=== PATIENT | female | born 1935 | race African-American/Black ===

== ENCOUNTER 2019-02-12 13:58 | Inpatient (IN) | payer MEDICARE ==
[2019-02-12] MEDS ORDERED: DILTIAZEM HCL/D5W 125 MG/125 ML RTUINJ IV ONE (14:27)
[2019-02-12] MEDS ORDERED: DILTIAZEM HCL/D5W 125 MG/125 ML RTUINJ IV PRN (14:28)
--- NOTE | 2019-02-12 14:49 | ER Document Report ---
ED General - General Stated Complaint: FALL Time Seen by Provider: 02/12/19 14:10 Mode of Arrival: Medic Information source: Relative, Emergency Med Personnel, [facility] Records Notes: 83-year-old female with hypertension, atrial fibrillation presents via EMS after family members did not hear from the patient for over 24 hours and she did not open her door. Patient was found on her bedroom floor lying under the bed. Las t known well was approximately 24 hours ago. Upon EMS arrival they report patient's heart rate 170-190. She did receive Cardizem prior to arrival. Daughter the patient reports that she is normal alert and oriented x3 although not very verbal. Patient denies any physical complaints when asked she just shakes her head yes and no. Daughter believes that patient has drooping of her face on the left. Patient has not been on her medications for a few weeks but started again a few days ago. She is not on any blood thinning medication. - HPI Onset: Other Quality of pain: No pain Severity: None Pain Level: Denies Associated symptoms: Weakness. denies: Chest pain, Fever, Nausea, Vomiting, Shortness of breath Exacerbated by: Denies Relieved by: Denies Similar symptoms previously: No Recently seen / treated by doctor: No - Related Data Allergies/Adverse Reactions: No Known Allergies Allergy (Verified 02/04/13 14:12) Past Medical History - General Information source: Relative, [facility] Records Cannot obtain history due to: Altered mental status - Social History Smoking Status: Never Smoker Frequency of alcohol use: None Drug Abuse: None Lives with: Alone Family History: Reviewed & Not Pertinent Patient has suicidal ideation: No Patient has homicidal ideation: No - Past Medical History Cardiac Medical History: Reports: Hx Hypertension Musculoskeletal Medical History: Reports Hx Arthritis Past Surgical History: Reports: Hx Section - x3 - Immunizations Immunizations up to date: Yes Hx Diphtheria, Pertussis, Tetanus Vaccination: Yes Hx Pneumococcal Vaccination: 11/06/07 Review of Systems - Review of Systems -: Yes ROS unobtainable due to patient's medical condition Physical Exam - Vital signs Vitals: Temp 98.7 F 02/12/19 14:10 - Notes Notes: PHYSICAL EXAMINATION: GENERAL: Well-appearing, well-nourished and in no acute distress. HEAD: Atraumatic, normocephalic. EYES: Pupils equal round and reactive to light, extraocular movements intact, conjunctiva are normal. ENT: Nares patent, oropharynx clear without exudates. Moist mucous membranes. NECK: Normal range of motion, supple without lymphadenopathy LUNGS: Breath sounds clear to auscultation bilaterally and equal. No wheezes rales or rhonchi. HEART: Regular rate and rhythm without murmurs ABDOMEN: Soft, nontender, nondistended abdomen. No guarding, no rebound. No masses appreciated. Female : deferred Musculoskeletal: Normal range of motion, no pitting or edema. No cyanosis. NEUROLOGICAL: Slurred speech, left-sided facial droop, left lower extremity bed availability drift. NIH 7 PSYCH: Normal mood, normal affect. SKIN: Posterior thigh welts, blistering Course - Re-evaluation Re-evalutation: Chest X-Ray 02/12/19 14:28 IMPRESSION: Borderline cardiomegaly without pulmonary edema. Head CT 02/12/19 14:28 IMPRESSION: There appears to be acute infarction involving a branch or branches of the right middle cerebral artery. EVIDENCE OF ACUTE STROKE: Yes RIGHT MCA. Cervical Spine CT 02/12/19 14:30 IMPRESSION: Degenerative disc disease, spondylosis, and facet arthropathy. No acute findings. Laboratory 02/12/19 02/12/19 02/12/19 14:45 14:45 14:45 WBC 13.6 H RBC 5.60 H Hgb 15.2 Hct 46.9 MCV 84 MCH 27.1 MCHC 32.4 RDW 14.6 H Plt Count 286 Total Counted 100 Seg Neutrophils % Not Reportable Seg Neuts % (Manual) 90 H Lymphocytes % Not Reportable Lymphocytes % (Manual) 5 L Monocytes % Not Reportable Monocytes % (Manual) 5 Eosinophils % Not Reportable Eosinophils % (Manual) 0 Basophils % Not Reportable Basophils % (Manual) 0 Absolute Neutrophils Not Reportable Abs Neuts (Manual) 12.2 H Absolute Lymphocytes Not Reportable Abs Lymphs (Manual) 0.7 Absolute Monocytes Not Reportable Abs Monocytes (Manual) 0.7 Absolute Eosinophils Not Reportable Absolute Eos (Manual) 0.0 Absolute Basophils Not Reportable Abs Basophils (Manual) 0.0 Platelet Comment ADEQUATE Poikilocytosis SLIGHT Anisocytosis SLIGHT Ovalocytes SLIGHT PT 14.4 INR 1.07 APTT 24.0 Sodium 143.4 Potassium 3.8 Chloride 102 Carbon Dioxide 23 Anion Gap 18 BUN 28 H Creatinine 0.90 Est GFR ( Amer) > 60 Est GFR (Non-Af Amer) > 60 Glucose 130 H Calcium 11.8 H Total Bilirubin 1.5 H Direct Bilirubin 0.5 H Neonat Total Bilirubin Not Reportable Neonat Direct Bilirubin Not Reportable Neonat Indirect Bili Not Reportable AST 105 H ALT 45 Alkaline Phosphatase 110 Creatine Kinase 5597 H CK-MB (CK-2) Troponin I Total Protein 7.9 Albumin 4.5 TSH Free T4 Free T3 pg/mL 02/12/19 02/12/19 14:45 14:45 WBC RBC Hgb Hct MCV MCH MCHC RDW Plt Count Total Counted Seg Neutrophils % Seg Neuts % (Manual) Lymphocytes % Lymphocytes % (Manual) Monocytes % Monocytes % (Manual) Eosinophils % Eosinophils % (Manual) Basophils % Basophils % (Manual) Absolute Neutrophils Abs Neuts (Manual) Absolute Lymphocytes Abs Lymphs (Manual) Absolute Monocytes Abs Monocytes (Manual) Absolute Eosinophils Absolute Eos (Manual) Absolute Basophils Abs Basophils (Manual) Platelet Comment Poikilocytosis Anisocytosis Ovalocytes PT INR APTT Sodium Potassium Chloride Carbon Dioxide Anion Gap BUN Creatinine Est GFR ( Amer) Est GFR (Non-Af Amer) Glucose Calcium Total Bilirubin Direct Bilirubin Neonat Total Bilirubin Neonat Direct Bilirubin Neonat Indirect Bili AST ALT Alkaline Phosphatase Creatine Kinase CK-MB (CK-2) 11.40 H Troponin I 0.054 Total Protein Albumin TSH < 0.01 L Free T4 1.86 Free T3 pg/mL 5.82 H Temp Pulse Resp BP Pulse Ox 98.7 F 149 H 28 H 146/89 H 97 02/12/19 14:10 02/12/19 15:00 02/12/19 16:31 02/12/19 16:31 02/12/19 16:31 Chest X-Ray 02/12/19 14:28 IMPRESSION: Borderline cardiomegaly without pulmonary edema. Head CT 02/12/19 14:28 IMPRESSION: There appears to be acute infarction involving a branch or branches of the right middle cerebral artery. EVIDENCE OF ACUTE STROKE: Yes RIGHT MCA. Cervical Spine CT 02/12/19 14:30 IMPRESSION: Degenerative disc disease, spondylosis, and facet arthropathy. No acute findings. 83-year-old female presents after being found down at home for unknown period of time. Daughter is at the B side and states that patient was last known well on Monday approximately 48 hours prior to arrival. Patient has no physical complaints when asked and only shakes her head yes and no to questions. On sure whether patient understands what she is being asked. 02/12/19 14:49 Patient found to be in atrial fibrillation with RVR with a heart rate of 140 despite 20 mg of Cardizem IV bolus. Cardizem drip initiated. Patient also found to have an NIH of 7 for left-sided facial droop, left-sided ataxia, weakness and significant dysarthria. 02/12/19 17:37 Patient's heart rate still in the 130-140s so digoxin was administered. 02/12/19 21:52 CT of the head was obtained and positive for a right MCA stroke. Patient did receive aspirin. Patient also found to be an rhabdomyolysis with a CK of over 5000. Patient did receive Cardizem and digoxin but remains tachycardic with a heart rate of 111. Patient was accepted to the ICU by Dr. Oneil. Findings discussed with the patient and her family members who are at the bedside. - Vital Signs Vital signs: Temp Pulse Resp BP Pulse Ox 98.7 F 100 25 H 134/68 H 96 02/12/19 14:10 02/12/19 18:00 02/12/19 19:31 02/12/19 19:31 02/12/19 19:31 - Laboratory Result Diagrams: 02/12/19 14:45 02/12/19 14:45 Laboratory results interpreted by me: 02/12/19 02/12/19 02/12/19 14:45 14:45 14:45 WBC 13.6 H RBC 5.60 H RDW 14.6 H Seg Neuts % (Manual) 90 H Lymphocytes % (Manual) 5 L Abs Neuts (Manual) 12.2 H BUN 28 H Glucose 130 H Calcium 11.8 H Total Bilirubin 1.5 H Direct Bilirubin 0.5 H AST 105 H Creatine Kinase 5597 H CK-MB (CK-2) 11.40 H TSH Free T3 pg/mL 02/12/19 14:45 WBC RBC RDW Seg Neuts % (Manual) Lymphocytes % (Manual) Abs Neuts (Manual) BUN Glucose Calcium Total Bilirubin Direct Bilirubin AST Creatine Kinase CK-MB (CK-2) TSH < 0.01 L Free T3 pg/mL 5.82 H - Diagnostic Test Radiology reviewed: Image reviewed, Reports reviewed - EKG Interpretation by Me Rate: Tachycardia Rhythm: A.Fib When compared to previous EKG there are: Changes noted Critical Care Note - Critical Care Note Total time excluding time spent on procedures (mins): 40 - Minutes of critical care time spent in direct contact evaluating and reevaluating the patient, treating symptoms, reviewing labs and studies and speaking with family and consultants excluding any procedures Discharge - Discharge Clinical Impression: Acute right MCA stroke, Atrial fibrillation with RVR Rhabdomyolysis Qualifiers: Rhabdomyolysis type: traumatic Encounter type: initial encounter Qualified Code(s): T79.6XXA - Traumatic ischemia of muscle, initial encounter HTN (hypertension) Qualifiers: Hypertension type: essential hypertension Qualified Code(s): I10 - Essential (primary) hypertension Fall at home Qualifiers: Encounter type: initial encounter Qualified Code(s): W19.XXXA - Unspecified fall, initial encounter Cervical spondylosis Qualifiers: Spinal osteoarthritis complication: without myelopathy or radiculopathy Qualified Code(s): M47.812 - Spondylosis without myelopathy or radiculopathy, cervical region Condition: Fair Disposition: ADMITTED INPATIENT Admitting Provider: Thad Unit Admitted: ICU ED NIH Stroke Scale - NIH Stroke Scale *: 1. NIH scale should be completed with appropriate accompanying assessment tools. *: 2. The NIH should reflect what the patient is capable of doing and should not be coached by the clinician. 1a. Level of Consciousness: 0=Alert;keenly responsive -: 1=Drowsy -: 2=Obtunded -: 3=Coma/unresponsive or reflex to noxious stimuli. 1a. Responses: 0 1b. Orientation Questions: a. What month is it? -: b. How old are you? -: 0=Answers both questions correctly. -: 1=Answers one question correctly or patient is intubated or has orotracheal trauma. -: 2=Answers neither question correctly. 1b. Responses: 0 1c. Response to commands: a. Open and close eyes? -: b. Certified Orthotist Practice Manager and release hand? -: Credit is given despite weakness. Demonstration of task is permitted. Substitute command if hands cannot be used. -: 0=Performs both tasks correctly -: 1=Performs one task correctly -: 2=Performs neither task correctly 1c. Responses: 0 2. Gaze: Establish eye contact and instruct patient to "Follow my finger" -: 0=Normal -: 1=Partial gaze palsy. Gaze is abnormal in one or both eyes, but where forced deviation or total gaze paresis is not present. -: 2=Forced deviation or total gaze paresis. 2. Responses: 0 3. Visual Breen: Sees fingers in all four quadrants. -: 0=No visual loss. -: 1=Partial hemianopsia. -: 2=Complete hemianopsia. -: 3=Bilateral hemianopsia (including Cortical blindness) 3. Responses: 0 4. Facial Movement: Instruct patient to: -: a. Show me your teeth -: b. Raise your eyebrows -: c. Close your eyes -: d. Smile -: 0=Normal symmetrical movement -: 1=Minor paralysis (flattened nasolabial fold, asymmetry on smiling). -: 2=Partial paralysis (total or near total paralysis of lower face). -: 3=Complete paralysis of upper and lower face 4. Responses: 1 5. Motor functions (left arm): Alternate sides and extend each arm with palms down (90 degrees if sitting or 45 degrees for supine). -: 0=No drift;limb holds for full 10 seconds. -: 1=Drift; limb holds but drifts down before full 10 seconds, but does not hit bed. -: 2=Some effort against gravity; limb cannot get to or maintain position. -: 3=No effort against gravity; limb falls. -: 4=No movement. -: UN=Amputation, joint fusion, explain in comments. 5. Responses (left arm): 1 5. Motor Functions (right arm): Alternate sides and extend each arm with palms down (90 degrees if sitting or 45 degrees for supine). -: 0=No drift;limb holds for full 10 seconds. -: 1=Drift; limb holds but drifts down before full 10 seconds, but does not hit bed. -: 2=Some effort against gravity; limb cannot get to or maintain position. -: 3=No effort against gravity; limb falls. -: 4=No movement. -: UN=Amputation, joint fusion, explain in comments. 5. Responses (right arm): 0 6. Motor Functions (left leg): With patient lying supine, alternate sides and extend each leg (30 degrees always while supine). -: 0=No drift, leg holds position for full 5 seconds -: 1=Drift; leg falls before full 5 seconds but does not hit bed. -: 2=Some effort against gravity, leg falls to bed but some effort against gravity. -: 3=No effort against gravity, leg falls to bed immediately. -: 4=No movement. -: UN=Amputation, joint fusion; explain in comments. 6. Responses (left leg): 2 6. Motor Functions (right leg): With patient lying supine, alternate sides and extend each leg (30 degrees always while supine). -: 0=No drift, leg holds position for full 5 seconds -: 1=Drift; leg falls before full 5 seconds but does not hit bed. -: 2=Some effort against gravity, leg falls to bed but some effort against gravity. -: 3=No effort against gravity, leg falls to bed immediately. -: 4=No movement. -: UN=Amputation, joint fusion; explain in comments. 6. Responses (right leg): 0 7. Limb Ataxia: With eyes open instruct patient to: -: a. "Touch your finger to your nose". -: b. "Touch your heel to your melvin" -: 0=Absent -: 1=Present in one limb. -: 2=Present in two limbs. -: UN=Amputation or joint fusion; explain in comments. 7. Responses: 1 7. If ataxia present choose as appropriate: Left arm, Left leg 8. Sensory: Test sensation using pinprick or noxious stimuli. Test as many body parts as possible. -: 0=Normal;no sensory loss -: 1=Mile to moderate sensory loss (patient feels pin prick but is less sharp on affected side). -: 2=Severe or total sensory loss. 8. Responses: 0 9. Best Language: Instruct patient to: -: a. "Describe what you see in this picture." -: b. "Name the items in this picture." -: c. "Read these sentences." -: 0=No aphasia, normal -: 1=Mild to moderate aphasia. -: 2=Severe aphasia -: 3=Mute, global aphasia, no usable speech or auditory comprehension. 9. Responses: 1 10. Articulation, Dysarthia: Instruct patient to: -: "Read these words" or "Repeat these words" -: 0=Normal -: 1=Mild to moderate; patient may slur some words but can be understood without difficulty. -: 2=Severe; patients speech so slurred as to be unintelligible in the absence of dysphasia. -: UN=Intubated or other physical barrier, explain in comments. 10. Responses: 1 11. Extinction or inattention: 0=No abnormality -: 1= Visual, tactile, auditory, spatial, or personal inattention or extinction to bilateral simulation in one or the sensory modalities. -: 2=Profound adore-inattention or adore-inattention to more than one modality; does not recognize own hand. 11. Responses: 0 Total Score: 7
[2019-02-12] MEDS ORDERED: DILTIAZEM HCL INJ 25 MG/5 ML VIAL ONE (14:58)
[2019-02-12] MEDS ORDERED: DILTIAZEM HCL INJ 25 MG/5 ML VIAL IV ONE (15:00)
[2019-02-12 15:05] LABS: HEMATOCRIT 46.9 % (36.0-47.0); HEMOGLOBIN 15.2 g/dL (12.0-15.5); MEAN CORPUSCULAR HEMOGLOBIN 27.1 pg (27.0-33.4); MEAN CORPUSCULAR HGB CONC 32.4 g/dL (32.0-36.0); MEAN CORPUSCULAR VOLUME 84 fl (80-97); PLATELET COUNT 286 10^3/uL (150-450); RED CELL DISTRIBUTION WIDTH 14.6 % (11.5-14.0); WHITE BLOOD COUNT 13.6 10^3/uL (4.0-10.5)
[2019-02-12 15:06] LABS: INTERNATIONAL RATION (INR) 1.07
[2019-02-12 15:11] LABS: PROTHROMBIN TIME 14.4 SEC (11.4-15.4)
--- NOTE | 2019-02-12 15:16 | RADIOLOGY REPORT (SQ) ---
EXAM DESCRIPTION: CHEST SINGLE VIEW COMPLETED DATE/TIME: 02/12/2019 2:55 pm REASON FOR STUDY: fall , left sided weakness facial droop COMPARISON: 05/13/2007 EXAM PARAMETERS: NUMBER OF VIEWS: One view. TECHNIQUE: Single frontal radiographic view of the chest acquired. RADIATION DOSE: NA LIMITATIONS: None. FINDINGS: LUNGS AND PLEURA: Mild subsegmental atelectasis in the left base. MEDIASTINUM AND HILAR STRUCTURES: No masses. Contour normal. HEART AND VASCULAR STRUCTURES: Heart size is borderline. No pulmonary edema. BONES: No acute findings. HARDWARE: None in the chest. OTHER: No other significant finding. IMPRESSION: Borderline cardiomegaly without pulmonary edema. TECHNICAL DOCUMENTATION: JOB ID: [id number] [employer]- All Rights Reserved Reading location - IP/workstation name: [email or web address]
[2019-02-12 15:25] LABS: ALANINE AMINOTRANSFERASE 45 U/L (9-52); ALBUMIN 4.5 g/dL (3.5-5.0); ALKALINE PHOSPHATASE 110 U/L (38-126); ANION GAP 18 (5-19); ASPARTATE AMINO TRANSFERASE 105 U/L (14-36); BILIRUBIN,DIRECT 0.5 mg/dL (0.0-0.4); BILIRUBIN,TOTAL 1.5 mg/dL (0.2-1.3); BLOOD UREA NITROGEN 28 mg/dL (7-20); CALCIUM 11.8 mg/dL (8.4-10.2); CARBON DIOXIDE 23 mmol/L (22-30); CHLORIDE 102 mmol/L (98-107); GLUCOSE 130 mg/dL (75-110); POTASSIUM 3.8 mmol/L (3.6-5.0); SODIUM 143.4 mmol/L (137-145); TOTAL PROTEIN 7.9 g/dL (6.3-8.2)
[2019-02-12 15:37] LABS: ABSOLUTE LYMPHOCYTES# (MANUAL) 0.7 10^3/uL (0.5-4.7); ABSOLUTE MONOCYTES # (MANUAL) 0.7 10^3/uL (0.1-1.4); ABSOLUTE NEUTROPHILS# (MANUAL) 12.2 10^3/uL (1.7-8.2); BASOPHILS % (MANUAL) 0 % (0-2); EOSINOPHILS % (MANUAL) 0 % (0-6); LYMPHOCYTES % (MANUAL) 5 % (13-45); MONOCYTES % (MANUAL) 5 % (3-13); SEGMENTED NEUTROPHILS % (MAN) 90 % (42-78); TOTAL CELLS COUNTED 100
[2019-02-12 15:39] LABS: ANISOCYTOSIS SLIGHT; CREATINE KINASE MB 11.4 ng/mL (<4.55); OVALOCYTES SLIGHT; PLATELET COMMENT ADEQUATE; POIKILOCYTOSIS SLIGHT
[2019-02-12] MEDS ORDERED: DIGOXIN INJ 0.5 MG/2 ML AMPULE IV ONE ×2 (15:41→16:44)
[2019-02-12 15:43] LABS: FREE T3 5.82 pg/mL (2.77-5.27); FREE T4 (FREE THYROXINE) 1.86 ng/dL (0.78-2.19)
[2019-02-12 15:45] LABS: TROPONIN I 0.054 ng/mL
[2019-02-12 15:57] LABS: THYROID STIMULATING HORMONE < 0.01 uIU/mL (0.47-4.68)
[2019-02-12 16:07] LABS: CREATINE KINASE 5597 U/L (30-135)
--- NOTE | 2019-02-12 16:27 | RADIOLOGY REPORT (SQ) ---
EXAM DESCRIPTION: CT HEAD WITHOUT COMPLETED DATE/TIME: 02/12/2019 4:08 pm REASON FOR STUDY: fall , left sided weakness facial droop COMPARISON: None. TECHNIQUE: Axial images acquired through the brain without intravenous contrast. Images reviewed wi th bone, brain and subdural windows. Additional sagittal and coronal reconstructions were generated. Images stored on PACS. All CT scanners at this facility use dose modulation, iterative reconstruction, and/or weight based d osing when appropriate to reduce radiation dose to as low as reasonably achievable (ALARA). [facility]: Dose Right [facility]: CareDose [facility]: Dose Right [facility]: Teradose 4D [facility]: [employer] RADIATION DOSE: CT Rad equipment meets quality standard of care and radiation dose reduction techniq ues were employed. CTDIvol: 53.2 mGy. DLP: 991 mGy-cm. mGy. LIMITATIONS: None. FINDINGS: VENTRICLES: Normal size and contour. CEREBRUM: No mass. No hemorrhage. No midline shift. There is white matter edema and loss of aguilar/ white differentiation in the distribution of the right middle cerebral artery. CEREBELLUM: No masses. No hemorrhage. No alteration of density. No evidence for acute infarction. EXTRAAXIAL SPACES: No fluid collections. No masses. ORBITS AND GLOBE: No intra- or extraconal masses. Normal contour of globe without masses. CALVARIUM: No fracture. PARANASAL SINUSES: No fluid or mucosal thickening. SOFT TISSUES: No mass or hematoma. OTHER: No other significant finding. IMPRESSION: There appears to be acute infarction involving a branch or branches of the right middle cerebral artery. EVIDENCE OF ACUTE STROKE: Yes RIGHT MCA. COMMENT: Quality ID # [id number]: Final reports with documentation of one or more dose reduction techniques (e.g., Automated exposure control, adjustment of the mA and/or kV according to patient size, use of iterative reconstruction technique) TECHNICAL DOCUMENTATION: JOB ID: [id number] 2008 [employer]- All Rights Reserved Reading location - IP/workstation name: [email or web address]
--- NOTE | 2019-02-12 16:37 | RADIOLOGY REPORT (SQ) ---
EXAM DESCRIPTION: CT CERVICAL SPINE WITHOUT COMPLETED DATE/TIME: 02/12/2019 4:08 pm REASON FOR STUDY: fall COMPARISON: None. TECHNIQUE: Axial images acquired through the cervical spine without intravenous contrast. Images re viewed with lung, soft tissue and bone windows. Reconstructed coronal and sagittal MPR images review ed. Images stored on PACS. All CT scanners at this facility use dose modulation, iterative reconstruction, and/or weight based d osing when appropriate to reduce radiation dose to as low as reasonably achievable (ALARA). [facility]: Dose Right [facility]: CareDose [facility]: Dose Right [facility]: Teradose 4D [facility]: [employer] RADIATION DOSE: CT Rad equipment meets quality standard of care and radiation dose reduction techniq ues were employed. CTDIvol: 18.1 mGy. DLP: 392 mGy-cm. mGy. LIMITATIONS: None. FINDINGS: ALIGNMENT: Anatomic. MINERALIZATION: Normal. VERTEBRAL BODIES: No fractures or dislocation. DISCS: Mild disc space narrowing from C3-C7. Small anterior and posterior osteophytes are present. FACETS, LATERAL MASSES, POSTERIOR ELEMENTS: Mild hypertrophic facet changes, left more than right. HARDWARE: None in the spine. VISUALIZED RIBS: No fractures. LUNG APICES AND SOFT TISSUES: No significant or acute findings. OTHER: No other significant finding. IMPRESSION: Degenerative disc disease, spondylosis, and facet arthropathy. No acute findings. TECHNICAL DOCUMENTATION: JOB ID: [id number] Quality ID # [id number]: Final reports with documentation of one or more dose reduction techniques (e.g., Au tomated exposure control, adjustment of the mA and/or kV according to patient size, use of iterative reconstruction technique) 2010 [employer]- All Rights Reserved Reading location - IP/workstation name: [email or web address]
[2019-02-12] MEDS ORDERED: ASPIRIN 300 MG SUPP, RECTAL PR ONE (16:45)
[2019-02-12] MEDS ORDERED: NORMAL SALINE 1000 ML 1,000 ML IV ONE (16:46)
[2019-02-12] MEDS ORDERED: GLUCAGON,HUMAN RECOMB 1 MG INJ SUBCUT PRN (17:47)
[2019-02-12] MEDS ORDERED: DEXTROSE 40% GEL 15 GM TUBE PO PRN ×2 (17:47)
[2019-02-12] MEDS ORDERED: DEXTROSE 50%-WATER 25 GM/50 ML DISP.SYRIN IV PRN ×2 (17:47)
[2019-02-12 21:38] LABS: CREATINE KINASE MB 10.2 ng/mL (<4.55)
[2019-02-12 21:43] LABS: TROPONIN I 0.056 ng/mL
--- NOTE | 2019-02-12 23:00 | RADIOLOGY REPORT (SQ) ---
EXAM DESCRIPTION: [facility]: US CAROTID DOPPLER BILATERAL CLINICAL HISTORY: 83 years Female; Acute stroke with lf hemiparesis TECHNIQUE: Grayscale and Doppler (color and pulse) ultrasound of bilateral carotid arteries and the vertebral arteries was performed. Stenosis assessment based on Carotid Artery Stenosis: Morton-Scale and Doppler US DiagnosisSociety of Radiologists in Ultrasound Consensus Conference; Radiology, Sep 2003, Vol. 229:340-346 COMPARISON: None. FINDINGS: Right carotid:Chronic calcific plaque at the ICA origin, with additional mixed plaque at the bifurcation. Right ICA velocities: Proximal 150/31, distal 175/19 cm/sec (Normal < 124/40) Right CCA PSV: 65 cm/sec Right ICA/CCA PSV ratio: 2.7 (Normal < 2.0) Right ECA: 85 cm/s Left carotid: Calcific plaque in the proximal ICA and mixed plaque at the bifurcation beginning in the distal CCA Left ICA velocities: Proximal 117/23, distal 167/28 cm/sec (Normal < 124/40) Left CCA PSV: Proximal 83, distal 43 cm/sec Left ICA/CCA PSV ratio: 3.9 (Normal < 2.0) Left ECA: 83 cm/s Right vertebral: No flow is identified Left vertebral: Antegrade, 51 cm/s IMPRESSION: 1. Atherosclerosis 2. Bilateral internal carotid artery 50-69% stenosis 3. Right vertebral artery flow could not be identified; it may be occluded. 4. Normal antegrade flow in the left vertebral artery.
[2019-02-12] MEDS: ENALAPRILAT DIHYDRATE INJ/PF 1.25 MG/1 ML SDV IV PRN (23:08)
[2019-02-12] MEDS: NORMAL SALINE 1000 ML 1,000 ML IV PRN (23:10)
--- NOTE | 2019-02-13 | EKG REPORT ---
SEVERITY:- ABNORMAL ECG - ATRIAL FIBRILLATION WITH RAPID V-RATE LVH WITH SECONDARY REPOLARIZATION ABNORMALITY : Confirmed by: Abbie Perez 13-Feb-2019 00:00:07
[2019-02-13 03:14] LABS: ABSOLUTE LYMPHOCYTES (AUTO) 1.3 10^3/uL (0.5-4.7); ABSOLUTE MONOCYTES (AUTO) 0.9 10^3/uL (0.1-1.4); ABSOLUTE NEUT (AUTO) 7.8 10^3/uL (1.7-8.2); BASOPHILS % (AUTO) 0.4 % (0-2); EOSINOPHILS % (AUTO) 0.3 % (0-6); HEMATOCRIT 41.9 % (36.0-47.0); HEMOGLOBIN 13.8 g/dL (12.0-15.5); LYMPHOCYTES % (AUTO) 13.1 % (13-45); MEAN CORPUSCULAR HEMOGLOBIN 27.2 pg (27.0-33.4); MEAN CORPUSCULAR VOLUME 82 fl (80-97); MONOCYTES % (AUTO) 9.3 % (3-13); PLATELET COUNT 229 10^3/uL (150-450); RED BLOOD COUNT 5.08 10^6/uL (3.72-5.28); RED CELL DISTRIBUTION WIDTH 14.6 % (11.5-14.0); SEGMENTED NEUTROPHILS % (AUTO) 76.9 % (42-78); TOTAL CELLS COUNTED % (AUTO) 100 %; WHITE BLOOD COUNT 10.2 10^3/uL (4.0-10.5)
[2019-02-13 03:24] LABS: ALANINE AMINOTRANSFERASE 40 U/L (9-52); ALBUMIN 3.2 g/dL (3.5-5.0); ALKALINE PHOSPHATASE 82 U/L (38-126); ANION GAP 6 (5-19); ASPARTATE AMINO TRANSFERASE 102 U/L (14-36); BILIRUBIN,DIRECT 0.4 mg/dL (0.0-0.4); BILIRUBIN,TOTAL 1.6 mg/dL (0.2-1.3); BLOOD UREA NITROGEN 26 mg/dL (7-20); CALCIUM 10.5 mg/dL (8.4-10.2); CARBON DIOXIDE 23 mmol/L (22-30); CHLORIDE 114 mmol/L (98-107); CHOLESTEROL 122.79 mg/dL (0-200); GLUCOSE 103 mg/dL (75-110); POTASSIUM 3.4 mmol/L (3.6-5.0); TOTAL PROTEIN 5.9 g/dL (6.3-8.2); TRIGLYCERIDES 77 mg/dL (<150)
[2019-02-13 03:35] LABS: CREATINE KINASE MB 5.64 ng/mL (<4.55); DIRECT LDL 61 mg/dL (<100); TROPONIN I 0.062 ng/mL
[2019-02-13 04:06] LABS: CREATINE KINASE 4201 U/L (30-135)
[2019-02-13] MEDS: NORMAL SALINE 1000 ML 1,000 ML IV PRN (05:00)
[2019-02-13] MEDS: DILTIAZEM HCL/D5W 125 MG/125 ML RTUINJ IV PRN ×2 (06:07→20:53)
[2019-02-13] MEDS: PANTOPRAZOLE SODIUM 40 MG TABLET.DR PO SCH ×2 (06:10→18:18)
--- NOTE | 2019-02-13 08:26 | PDOC PROGRESS REPORT ---
Subjective Progress Note for:: 02/13/19 Subjective:: Remain disoriented but follow simple commands. No reported difficulty with breathing. No fever. Remain NPO due to failed swallowing evaluation. Reason For Visit: ACUTE LEFT MCA STROKE;PERSISTENT ATRIAL Physical Exam Vital Signs: Temp Pulse Resp BP Pulse Ox 97.6 F 70 20 130/72 H 93 02/13/19 05:10 02/13/19 07:00 02/13/19 05:10 02/13/19 06:00 02/13/19 05:10 Intake & Output 02/12/19 02/13/19 02/14/19 06:59 06:59 06:59 Intake Total 1675 12 Balance 1675 12 Weight 75.7 kg General appearance: PRESENT: no acute distress Head exam: PRESENT: atraumatic, normocephalic Eye exam: PRESENT: conjunctiva pink. ABSENT: scleral icterus Ear exam: PRESENT: normal external ear exam Mouth exam: PRESENT: moist Respiratory exam: PRESENT: clear to auscultation vanessa, decreased breath sounds Cardiovascular exam: PRESENT: irregular rhythm, +S1, +S2. ABSENT: diastolic mur mur, systolic murmur Vascular exam: PRESENT: normal capillary refill. ABSENT: pallor GI/Abdominal exam: PRESENT: normal bowel sounds, soft. ABSENT: distended, guarding, mass, organolmegaly, rebound, tenderness Rectal exam: PRESENT: deferred Extremities exam: ABSENT: pedal edema Neurological exam: PRESENT: altered, awake, other - left hemiparesis with facial droop Psychiatric exam: PRESENT: appropriate affect, normal mood Skin exam: PRESENT: dry, warm, other - left buttock pressure ulcer with central area of early developing eschar, measure about 4x4 inches. No drainage or discharge. Results Laboratory Results: 02/13/19 02:50 02/13/19 02:50 02/12/19 02/12/19 02/12/19 14:45 14:45 14:45 WBC 13.6 H RBC 5.60 H Hgb 15.2 Hct 46.9 MCV 84 MCH 27.1 MCHC 32.4 RDW 14.6 H Plt Count 286 Seg Neutrophils % Not Reportable Lymphocytes % Not Reportable Monocytes % Not Reportable Eosinophils % Not Reportable Basophils % Not Reportable Absolute Neutrophils Not Reportable Absolute Lymphocytes Not Reportable Absolute Monocytes Not Reportable Absolute Eosinophils Not Reportable Absolute Basophils Not Reportable Sodium 143.4 Potassium 3.8 Chloride 102 Carbon Dioxide 23 Anion Gap 18 BUN 28 H Creatinine 0.90 Est GFR ( Amer) > 60 Est GFR (Non-Af Amer) > 60 Glucose 130 H Calcium 11.8 H Total Bilirubin 1.5 H AST 105 H ALT 45 Alkaline Phosphatase 110 Total Protein 7.9 Albumin 4.5 Triglycerides Cholesterol LDL Cholesterol Direct VLDL Cholesterol HDL Cholesterol TSH < 0.01 L Free T4 1.86 Free T3 pg/mL 5.82 H 02/13/19 02/13/19 02:50 02:50 WBC 10.2 RBC 5.08 Hgb 13.8 Hct 41.9 MCV 82 MCH 27.2 MCHC 33.0 RDW 14.6 H Plt Count 229 Seg Neutrophils % 76.9 Lymphocytes % 13.1 Monocytes % 9.3 Eosinophils % 0.3 Basophils % 0.4 Absolute Neutrophils 7.8 Absolute Lymphocytes 1.3 Absolute Monocytes 0.9 Absolute Eosinophils 0.0 Absolute Basophils 0.0 Sodium 143.0 Potassium 3.4 L Chloride 114 H Carbon Dioxide 23 Anion Gap 6 BUN 26 H Creatinine 0.77 Est GFR ( Amer) > 60 Est GFR (Non-Af Amer) > 60 Glucose 103 Calcium 10.5 H Total Bilirubin 1.6 H AST 102 H ALT 40 Alkaline Phosphatase 82 Total Protein 5.9 L Albumin 3.2 L Triglycerides 77 Cholesterol 122.79 LDL Cholesterol Direct 61 VLDL Cholesterol 15.0 HDL Cholesterol 48 TSH Free T4 Free T3 pg/mL 02/12/19 02/12/19 02/12/19 14:45 14:45 20:44 Creatine Kinase 5597 H 6007 H CK-MB (CK-2) 11.40 H Troponin I 0.054 02/12/19 02/13/19 02/13/19 20:44 02:50 02:50 Creatine Kinase 4201 H CK-MB (CK-2) 10.20 H 5.64 H Troponin I 0.056 0.062 Impressions: Carotid Doppler Study 02/12/19 00:00 IMPRESSION: 1. Atherosclerosis 2. Bilateral internal carotid artery 50-69% stenosis 3. Right vertebral artery flow could not be identified; it may be occluded. 4. Normal antegrade flow in the left vertebral artery. Head CT 02/12/19 14:28 IMPRESSION: There appears to be acute infarction involving a branch or branches of the right middle cerebral artery. EVIDENCE OF ACUTE STROKE: Yes RIGHT MCA. Cervical Spine CT 02/12/19 14:30 IMPRESSION: Degenerative disc disease, spondylosis, and facet arthropathy. No acute findings. Assessment & Plan - Diagnosis (1) Acute right MCA stroke Is this a current diagnosis for this admission?: Yes Plan: Continue supportive care with sbp aim at or above 120 but less than 140 mmHg for adequate cerebral perfusion. (2) Atrial fibrillation with RVR Is this a current diagnosis for this admission?: Yes Plan: Rate control is fair at present. Maintain on Aspirin suppository until oral route is save for administration. (3) Fall at home Qualifiers: Encounter type: initial encounter Qualified Code(s): W19.XXXA - Unspecified fall, initial encounter; Y92.009 - Unspecified place in unspecified non- institutional (private) residence as the place of occurrence of the external cause Is this a current diagnosis for this admission?: Yes (4) Rhabdomyolysis Qualifiers: Rhabdomyolysis type: traumatic Encounter type: initial encounter Qualified Code(s): T79.6XXA - Traumatic ischemia of muscle, initial encounter Is this a current diagnosis for this admission?: Yes Plan: Continue IV fluid support. (5) HTN (hypertension) Qualifiers: Hypertension type: essential hypertension Qualified Code(s): I10 - Essential (primary) hypertension Is this a current diagnosis for this admission?: Yes (6) Cervical spondylosis Qualifiers: Spinal osteoarthritis complication: without myelopathy or radiculopathy Qualified Code(s): M47.812 - Spondylosis without myelopathy or radiculopathy, cervical region Is this a current diagnosis for this admission?: Yes (7) Pressure ulcer of left buttock, stage 4 Is this a current diagnosis for this admission?: Yes Plan: Continue conservative management with surgical consultation. (8) Stenosis of both internal carotid arteries Is this a current diagnosis for this admission?: Yes Plan: Continue anti-platelet therapy at this time. Consider anti-thrombotic therapy with improve resolution of cerebral swelling to limit risk of bleeding with stroke evolution. - Time Time Spent with patient: 25-34 minutes Medications reviewed and adjusted accordingly: Yes Anticipated discharge: SNF Within: Other - Inpatient Certification Based on my medical assessment, after consideration of the patient's co morbidities, presenting symptoms, or acuity I expect that the services needed warrant INPATIENT care.: Yes I certify that my determination is in accordance with my understanding of Medicare's requirements for reasonable and necessary INPATIENT services [42 CFR 412.3e].: Yes Medical Necessity: Significant Comorbidiites Make Outpatient Treatment Too Risky, Need Close Monitoring Due to Risk of Patient Decompensation, Need For IV Fluids, Need For Continuous Telemetry Monitoring, Need for Neurological Checks, Need for Surgery, Risk of Complication if Not Cared For in Hospital, Risk of Diagnosis Which Will Require Inpatient Eval/Care/Monitoring Post Hospital Care: D/C or Transfer Summary - Plan Summary Plan Summary: Continue supportive management. D/C Cardizem infusion. Maintain on IV Digoxin 0.25mg daily for rate control due to her low normal sbp and heart rate < 10 0/min. Follow up on other requested pending evaluation. Request surgical consultation for pressure ulcer evaluation.
--- NOTE | 2019-02-13 08:43 | RADIOLOGY REPORT (SQ) ---
EXAM DESCRIPTION: CHEST SINGLE VIEW COMPLETED DATE/TIME: 02/13/2019 8:03 am REASON FOR STUDY: Acute stroke with lf hemiparesis COMPARISON: 02/12/2019 EXAM PARAMETERS: NUMBER OF VIEWS: One view. TECHNIQUE: Single frontal radiographic view of the chest acquired. RADIATION DOSE: NA LIMITATIONS: None. FINDINGS: LUNGS AND PLEURA: Linear lingular opacities, likely atelectasis. No additional consolidat ion. No pleural effusion or pneumothorax. MEDIASTINUM AND HILAR STRUCTURES: Stable. HEART AND VASCULAR STRUCTURES: Borderline enlarged heart, stable. No evidence of failure. Aortic at herosclerosis. BONES: No acute findings. HARDWARE: None in the chest. OTHER: No other significant finding. IMPRESSION: Linear lingular opacities likely atelectasis. Stable borderline enlarged cardiac silhouette without evidence of failure. TECHNICAL DOCUMENTATION: JOB ID: [id number] [employer]- All Rights Reserved Reading location - IP/workstation name: [email or web address]
[2019-02-13] MEDS ORDERED: ASPIRIN 81 MG TABLET, CHEWABLE PO SCH (10:00)
[2019-02-13 10:31] LABS: CREATINE KINASE MB 4.21 ng/mL (<4.55); TROPONIN I 0.044 ng/mL
[2019-02-13] MEDS: ASPIRIN 300 MG SUPP, RECTAL PR SCH (12:00)
[2019-02-13] MEDS: ENOXAPARIN SODIUM INJ 40 MG/0.4 ML DISP.SYRIN SUBCUT SCH (13:14)
[2019-02-13 17:23] LABS: ANION GAP 6 (5-19); BLOOD UREA NITROGEN 23 mg/dL (7-20); CALCIUM 9.8 mg/dL (8.4-10.2); CARBON DIOXIDE 24 mmol/L (22-30); CHLORIDE 113 mmol/L (98-107); GLUCOSE 82 mg/dL (75-110); POTASSIUM 3.4 mmol/L (3.6-5.0); SODIUM 142.6 mmol/L (137-145)
[2019-02-13] MEDS: DIGOXIN INJ 0.5 MG/2 ML AMPULE IV SCH (18:10)
--- NOTE | 2019-02-13 18:33 | PDOC H&P ---
History of Present Illness Admission Date/PCP: 02/12/19 16:57 Patient complains of: Fall at home History of Present Illness: CAYLA DE LA CRUZ is a 83 year old female patient known to my practice who presented to the ED via EMS due to lack of contact by daughter over preceding 24 hours and upon arrival at patient's resident she was unable to open her door. Upon forced entry, she was found on the floor in her bed room, unable to adequately communicate regarding event that led to her fall and daughter noted left facial droop. The EMS personnel found her in atrial fibrillation with rapid ventricular response in 5the range of 170-190. She had IV Cardizem admin istration on route to the ED. Her initial evaluation in the ED confirmed her persistent A.Fibrillation with need for IV Cardizem infusion therapy. She had 2 bolus doses of IV Digoxin due to less than optimal response to the IV Cardizem. Her radiographic evaluation did confirm right MCA branches region with acute infarction. Her cervical spine CT was significant for degenerative disc disease with spondylosis. Her blood chemistry revealed elevated CK level in range of acute rhabdomyolysis suggestive of fall and possibly on the floor for a long time. She was advised hospitalization for further evaluation and management. Her known morbidities include hypertension and osteoarthritis. Past Medical History Cardiac Medical History: Reports: Hypertension Musculoskeltal Medical History: Reports: Arthritis Past Surgical History Past Surgical History: Reports: Section - x3 Social History Lives with: Alone Smoking Status: Never Smoker - Advance Directive Resuscitation Status: Full Code Family History Family History: Reviewed & Not Pertinent Parental Family History Reviewed: Yes Children Family History Reviewed: Yes Sibling(s) Family History Reviewed.: Yes Medication/Allergy Home Medications: Amlodipine/Valsartan [Exforge 10-320 mg Tablet] 1 tab PO DAILY 02/12/19 Metoprolol Succinate [Toprol Xl 25 mg Tab.sr] 25 mg PO QAM 02/12/19 Allergies/Adverse Reactions: No Known Allergies Allergy (Verified 02/04/13 14:12) Review of Systems ROS unobtainable: Due to mental status - Daughter at bedside was sorce of her HPI narrative. Physical Exam Vital Signs: Temp Pulse Resp BP Pulse Ox 98.7 F 149 H 28 H 146/89 H 97 02/12/19 14:10 02/12/19 15:00 02/12/19 16:31 02/12/19 16:31 02/12/19 16:31 Intake & Output 02/11/19 02/12/19 02/13/19 06:59 06:59 06:59 Intake Total 2 Balance 2 Weight 91.4 kg General appearance: PRESENT: no acute distress Head exam: PRESENT: atraumatic, normocephalic Eye exam: PRESENT: conjunctiva pink, EOMI, PERRLA, scleral icterus Ear exam: PRESENT: normal external ear exam Mouth exam: PRESENT: moist, neck supple, tongue midline. ABSENT: laceration Neck exam: PRESENT: full ROM. ABSENT: carotid bruit, JVD, lymphadenopathy, thyromegaly Respiratory exam: PRESENT: clear to auscultation vanessa, decreased breath sounds Cardiovascular exam: PRESENT: irregular rhythm, +S1, +S2, tachycardia. ABSENT: diastolic murmur, systolic murmur Vascular exam: PRESENT: normal capillary refill. ABSENT: pallor GI/Abdominal exam: PRESENT: normal bowel sounds, soft. ABSENT: distended, guarding, mass, organolmegaly, rebound, tenderness Rectal exam: PRESENT: deferred Extremities exam: ABSENT: pedal edema Musculoskeletal exam: PRESENT: deformity - related to multiple joint involvement with arthritis. ABSENT: ambulatory Neurological exam: PRESENT: alert, awake - but minimal in verbal response Psychiatric exam: PRESENT: anxious - with tremor in her hands Skin exam: PRESENT: dry, warm Results Laboratory Results: 02/12/19 14:45 02/12/19 14:45 02/12/19 02/12/19 02/12/19 14:45 14:45 14:45 WBC 13.6 H RBC 5.60 H Hgb 15.2 Hct 46.9 MCV 84 MCH 27.1 MCHC 32.4 RDW 14.6 H Plt Count 286 Seg Neutrophils % Not Reportable Lymphocytes % Not Reportable Monocytes % Not Reportable Eosinophils % Not Reportable Basophils % Not Reportable Absolute Neutrophils Not Reportable Absolute Lymphocytes Not Reportable Absolute Monocytes Not Reportable Absolute Eosinophils Not Reportable Absolute Basophils Not Reportable Sodium 143.4 Potassium 3.8 Chloride 102 Carbon Dioxide 23 Anion Gap 18 BUN 28 H Creatinine 0.90 Est GFR ( Amer) > 60 Est GFR (Non-Af Amer) > 60 Glucose 130 H Calcium 11.8 H Total Bilirubin 1.5 H AST 105 H ALT 45 Alkaline Phosphatase 110 Total Protein 7.9 Albumin 4.5 TSH < 0.01 L Free T4 1.86 Free T3 pg/mL 5.82 H 02/12/19 02/12/19 14:45 14:45 Creatine Kinase 5597 H CK-MB (CK-2) 11.40 H Troponin I 0.054 Impressions: Chest X-Ray 02/12/19 14:28 IMPRESSION: Borderline cardiomegaly without pulmonary edema. Head CT 02/12/19 14:28 IMPRESSION: There appears to be acute infarction involving a branch or branches of the right middle cerebral artery. EVIDENCE OF ACUTE STROKE: Yes RIGHT MCA. Cervical Spine CT 02/12/19 14:30 IMPRESSION: Degenerative disc disease, spondylosis, and facet arthropathy. No acute findings. Assessment & Plan - Diagnosis (1) Acute right MCA stroke Is this a current diagnosis for this admission?: Yes Plan: See admitting attending physician orders. (2) Atrial fibrillation with RVR Is this a current diagnosis for this admission?: Yes Plan: See admitting attending physician orders. (3) Fall at home Qualifiers: Encounter type: initial encounter Qualified Code(s): W19.XXXA - Unspecified fall, initial encounter; Y92.009 - Unspecified place in unspecified non- institutional (private) residence as the place of occurrence of the external cause Is this a current diagnosis for this admission?: Yes Plan: See admitting attending physician orders. (4) Rhabdomyolysis Qualifiers: Rhabdomyolysis type: traumatic Encounter type: initial encounter Qualified Code(s): T79.6XXA - Traumatic ischemia of muscle, initial encounter Is this a current diagnosis for this admission?: Yes Plan: See admitting attending physician orders. (5) HTN (hypertension) Qualifiers: Hypertension type: essential hypertension Qualified Code(s): I10 - Essential (primary) hypertension Is this a current diagnosis for this admission?: Yes Plan: See admitting attending physician orders. (6) Cervical spondylosis Qualifiers: Spinal osteoarthritis complication: without myelopathy or radiculopathy Qualified Code(s): M47.812 - Spondylosis without myelopathy or radiculopathy, cervical region Is this a current diagnosis for this admission?: Yes Plan: See admitting attending physician orders. - Time Time Spent: Greater than 70 Minutes Medications reviewed and adjusted accordingly: Yes Anticipated discharge: SNF Within: Other - Inpatient Certification Based on my medical assessment, after consideration of the patient's comorbidities, presenting symptoms, or acuity I expect that the services needed warrant INPATIENT care.: Yes I certify that my determination is in accordance with my understanding of Medicare's requirements for reasonable and necessary INPATIENT services [42 CFR 412.3e].: Yes Medical Necessity: Significant Comorbidiites Make Outpatient Treatment Too Risky, Need Close Monitoring Due to Risk of Patient Decompensation, Need For IV Fluids, Need For Continuous Telemetry Monitoring, Risk of Complication if Not Cared For in Hospital, Risk of Diagnosis Which Will Require Inpatient Eval/Care/Monitoring Post Hospital Care: D/C or Transfer Summary - Plan Summary Plan Summary: See admitting attending physician orders. Patient will benefit from acute rehabilitation upon discharge.
[2019-02-13] MEDS: POTASSI CL 20 MEQ/50 ML RIDER 20 MEQ/50 ML RTUPB IV SCH ×2 (21:00→23:00)
[2019-02-14] MEDS: NORMAL SALINE 1000 ML 1,000 ML IV PRN ×3 (01:11→20:52)
[2019-02-14] MEDS: DILTIAZEM HCL/D5W 125 MG/125 ML RTUINJ IV PRN ×3 (04:52→22:15)
[2019-02-14] MEDS: PANTOPRAZOLE SODIUM 40 MG TABLET.DR PO SCH ×2 (05:07→18:44)
[2019-02-14 09:20] LABS: ABSOLUTE BASOPHILS # (AUTO) 0.1 10^3/uL (0.0-0.2); ABSOLUTE EOSINOPHILS # (AUTO) 0.2 10^3/uL (0.0-0.6); ABSOLUTE LYMPHOCYTES (AUTO) 1.3 10^3/uL (0.5-4.7); ABSOLUTE MONOCYTES (AUTO) 0.7 10^3/uL (0.1-1.4); ABSOLUTE NEUT (AUTO) 6.5 10^3/uL (1.7-8.2); BASOPHILS % (AUTO) 1.2 % (0-2); EOSINOPHILS % (AUTO) 2.7 % (0-6); HEMATOCRIT 43.2 % (36.0-47.0); HEMOGLOBIN 14.2 g/dL (12.0-15.5); LYMPHOCYTES % (AUTO) 14.4 % (13-45); MEAN CORPUSCULAR HEMOGLOBIN 27.2 pg (27.0-33.4); MEAN CORPUSCULAR HGB CONC 32.9 g/dL (32.0-36.0); MEAN CORPUSCULAR VOLUME 83 fl (80-97); MONOCYTES % (AUTO) 8.2 % (3-13); PLATELET COUNT 205 10^3/uL (150-450); RED BLOOD COUNT 5.23 10^6/uL (3.72-5.28); RED CELL DISTRIBUTION WIDTH 14.4 % (11.5-14.0); SEGMENTED NEUTROPHILS % (AUTO) 73.5 % (42-78); TOTAL CELLS COUNTED % (AUTO) 100 %; WHITE BLOOD COUNT 8.8 10^3/uL (4.0-10.5)
[2019-02-14 09:40] LABS: ANION GAP 6 (5-19); BLOOD UREA NITROGEN 16 mg/dL (7-20); CALCIUM 9.9 mg/dL (8.4-10.2); CARBON DIOXIDE 21 mmol/L (22-30); CHLORIDE 115 mmol/L (98-107); GLUCOSE 91 mg/dL (75-110); POTASSIUM 3.5 mmol/L (3.6-5.0); SODIUM 141.7 mmol/L (137-145)
[2019-02-14] MEDS: DIGOXIN INJ 0.5 MG/2 ML AMPULE IV SCH (10:57)
[2019-02-14] MEDS: ENOXAPARIN SODIUM INJ 40 MG/0.4 ML DISP.SYRIN SUBCUT SCH (11:00)
[2019-02-14] MEDS: ASPIRIN 300 MG SUPP, RECTAL PR SCH (16:04)
--- NOTE | 2019-02-14 18:34 | PDOC PROGRESS REPORT ---
Subjective Progress Note for:: 02/14/19 Subjective:: Patient is more lucid and appropriate in responses this morning. She denied any chest pain or difficulty with breathing. Request for food and water. No fever or chills. She remain NPO due to failed swallowing evaluation. Reason For Visit: ACUTE LEFT MCA STROKE;PERSISTENT ATRIAL Physical Exam Vital Signs: Temp Pulse Resp BP Pulse Ox 97.4 F 85 26 H 169/75 H 95 02/14/19 04:48 02/14/19 07:29 02/14/19 04:48 02/14/19 07:29 02/14/19 07:29 Intake & Output 02/13/19 02/14/19 02/15/19 06:59 06:59 06:59 Intake Total 1675 1271 Output Total 1100 Balance 1675 171 Weight 75.7 kg 97.8 kg Physical Exam: General appearance: PRESENT: no acute distress Head exam: PRESENT: atraumatic, normocephalic Eye exam: PRESENT: conjunctiva pink. ABSENT: pallor, scleral icterus Ear exam: PRESENT: normal external ear exam Mouth exam: PRESENT: moist Respiratory exam: PRESENT: clear to auscultation vanessa, decreased breath sounds Cardiovascular exam: PRESENT: irregular rhythm, +S1, +S2. ABSENT: diastolic murmur, systolic murmur GI/Abdominal exam: PRESENT: normal bowel sounds, soft. ABSENT: distended, guarding, mass, organomegaly, rebound, tenderness Rectal exam: PRESENT: deferred Extremities exam: ABSENT: pedal edema Neurological exam: PRESENT: altered, awake, other - improving left hemiparesis with facial droop Psychiatric exam: PRESENT: appropriate affect, normal mood Skin exam: PRESENT: dry, warm, other - left buttock pressure ulcer with central area of early developing eschar. Results Laboratory Results: 02/13/19 02:50 02/13/19 16:44 02/13/19 02/13/19 16:44 16:44 Sodium 142.6 Potassium 3.4 L Chloride 113 H Carbon Dioxide 24 Anion Gap 6 BUN 23 H Creatinine 0.69 Est GFR ( Amer) > 60 Est GFR (Non-Af Amer) > 60 Glucose 82 Calcium 9.8 Magnesium 2.1 02/12/19 02/12/19 02/12/19 14:45 14:45 20:44 Creatine Kinase 5597 H 6007 H CK-MB (CK-2) 11.40 H Troponin I 0.054 02/12/19 02/13/19 02/13/19 20:44 02:50 02:50 Creatine Kinase 4201 H CK-MB (CK-2) 10.20 H 5.64 H Troponin I 0.056 0.062 02/13/19 02/13/19 09:15 09:15 Creatine Kinase 3157 H CK-MB (CK-2) 4.21 Troponin I 0.044 Impressions: Carotid Doppler Study 02/12/19 00:00 IMPRESSION: 1. Atherosclerosis 2. Bilateral internal carotid artery 50-69% stenosis 3. Right vertebral artery flow could not be identified; it may be occluded. 4. Normal antegrade flow in the left vertebral artery. Head CT 02/12/19 14:28 IMPRESSION: There appears to be acute infarction involving a branch or branches of the right middle cerebral artery. EVIDENCE OF ACUTE STROKE: Yes RIGHT MCA. Cervical Spine CT 02/12/19 14:30 IMPRESSION: Degenerative disc disease, spondylosis, and facet arthropathy. No acute findings. Chest X-Ray 02/13/19 08:00 IMPRESSION: Linear lingular opacities likely atelectasis. Stable borderline enlarged cardiac silhouette without evidence of failure. Assessment & Plan - Diagnosis (1) Acute right MCA stroke Is this a current diagnosis for this admission?: Yes (2) Atrial fibrillation with RVR Is this a current diagnosis for this admission?: Yes (3) Fall at home Qualifiers: Encounter type: initial encounter Qualified Code(s): W19.XXXA - Unspecified fall, initial encounter; Y92.009 - Unspecified place in unspecified non- institutional (private) residence as the place of occurrence of the external cause Is this a current diagnosis for this admission?: Yes (4) Rhabdomyolysis Qualifiers: Rhabdomyolysis type: traumatic Encounter type: initial encounter Qualified Code(s): T79.6XXA - Traumatic ischemia of muscle, initial encounter Is this a current diagnosis for this admission?: Yes (5) HTN (hypertension) Qualifiers: Hypertension type: essential hypertension Qualified Code(s): I10 - Essent ial (primary) hypertension Is this a current diagnosis for this admission?: Yes (6) Cervical spondylosis Qualifiers: Spinal osteoarthritis complication: without myelopathy or radiculopathy Qualified Code(s): M47.812 - Spondylosis without myelopathy or radiculopathy, cervical region Is this a current diagnosis for this admission?: Yes - Time Time Spent with patient: 25-34 minutes Medications reviewed and adjusted accordingly: Yes Anticipated discharge: SNF - for short term rehabilitation Within: Other - Inpatient Certification Based on my medical assessment, after consideration of the patient's comorbidities, presenting symptoms, or acuity I expect that the services needed warrant INPATIENT care.: Yes I certify that my determination is in accordance with my understanding of Medicare's requirements for reasonable and necessary INPATIENT services [42 CFR 412.3e].: Yes Medical Necessity: Significant Comorbidiites Make Outpatient Treatment Too Risky, Need Close Monitoring Due to Risk of Patient Decompensation, Need For IV Fluids, Need For Continuous Telemetry Monitoring, Risk of Complication if Not Cared For in Hospital, Risk of Diagnosis Which Will Require Inpatient Eval/Care/Monitoring Post Hospital Care: D/C or Transfer Summary - Plan Summary Plan Summary: Continue current medication management. she was placed back on IV Cardizem due to worsening ventricular rate and elevated blood pressure. Follow up on swallowing evaluation to determine opportunity for oral feeding.
[2019-02-14 20:23] LABS: BLOOD UREA NITROGEN 15 mg/dL (7-20); GLUCOSE 111 mg/dL (75-110); POTASSIUM 3.5 mmol/L (3.6-5.0)
[2019-02-14 20:28] LABS: ANION GAP 6 (5-19); CARBON DIOXIDE 23 mmol/L (22-30); CHLORIDE 112 mmol/L (98-107); SODIUM 140.6 mmol/L (137-145)
[2019-02-14] MEDS: ENALAPRILAT DIHYDRATE INJ/PF 1.25 MG/1 ML SDV IV PRN (23:13)
[2019-02-15] MEDS: PANTOPRAZOLE SODIUM 40 MG TABLET.DR PO SCH ×2 (05:41→16:51)
[2019-02-15] MEDS: NORMAL SALINE 1000 ML 1,000 ML IV PRN ×2 (06:29→16:50)
[2019-02-15] MEDS: DILTIAZEM HCL/D5W 125 MG/125 ML RTUINJ IV PRN (10:12)
[2019-02-15] MEDS: ASPIRIN 300 MG SUPP, RECTAL PR SCH (10:14)
[2019-02-15] MEDS: ENOXAPARIN SODIUM INJ 40 MG/0.4 ML DISP.SYRIN SUBCUT SCH (10:16)
--- NOTE | 2019-02-15 14:53 | PDOC PROGRESS REPORT ---
Subjective Progress Note for:: 02/15/19 Subjective:: Patient denied any chest pain or difficulty with breathing. No fever or chills. She is tolerating oral feeding. No abdominal pain or diarrhea. Reason For Visit: ACUTE LEFT MCA STROKE;PERSISTENT ATRIAL Physical Exam Vital Signs: Temp Pulse Resp BP Pulse Ox 98.7 F 100 14 150/90 H 99 02/15/19 11:48 02/15/19 11:48 02/15/19 11:48 02/15/19 11:48 02/15/19 11:48 Intake & Output 02/14/19 02/15/19 02/16/19 06:59 06:59 06:59 Intake Total 1271 4267 195 Output Total 1100 2250 700 Balance 171 2016 - Weight 97.8 kg 99 kg Physical Exam: General appearance: PRESENT: no acute distress Head exam: PRESENT: atraumatic, normocephalic Eye exam: PRESENT: conjunctiva pink. ABSENT: pallor, scleral icterus Ear exam: PRESENT: normal external ear exam Mouth exam: PRESENT: moist Respiratory exam: PRESENT: clear to auscultation vanessa, decreased breath sounds Cardiovascular exam: PRESENT: irregular rhythm, +S1, +S2. ABSENT: diastolic murmur, systolic murmur GI/Abdominal exam: PRESENT: normal bowel sounds, soft. ABSENT: distended, guarding, mass, organomegaly, rebound, tenderness Extremities exam: ABSENT: pedal edema Neurological exam: PRESENT: altered, awake, other - improving left hemiparesis with facial droop Psychiatric exam: PRESENT: appropriate affect, normal mood Skin exam: PRESENT: dry, warm, other - left buttock pressure ulcer with central area of early developing eschar. Results Laboratory Results: 02/14/19 09:02 02/14/19 19:48 02/14/19 19:48 Sodium 140.6 Potassium 3.5 L Chloride 112 H Carbon Dioxide 23 Anion Gap 6 BUN 15 Creatinine 0.59 Est GFR ( Amer) > 60 Est GFR (Non-Af Amer) > 60 Glucose 111 H Calcium 10.0 Magnesium 2.0 02/12/19 02/12/19 02/12/19 14:45 14:45 20:44 Creatine Kinase 5597 H 6007 H CK-MB (CK-2) 11.40 H Troponin I 0.054 02/12/19 02/13/19 02/13/19 20:44 02:50 02:50 Creatine Kinase 4201 H CK-MB (CK-2) 10.20 H 5.64 H Troponin I 0.056 0.062 02/13/19 02/13/19 09:15 09:15 Creatine Kinase 3157 H CK-MB (CK-2) 4.21 Troponin I 0.044 Impressions: Carotid Doppler Study 02/12/19 00:00 IMPRESSION: 1. Atherosclerosis 2. Bilateral internal carotid artery 50-69% stenosis 3. Right vertebral artery flow could not be identified; it may be occluded. 4. Normal antegrade flow in the left vertebral artery. Head CT 02/12/19 14:28 IMPRESSION: There appears to be acute infarction involving a branch or branches of the right middle cerebral artery. EVIDENCE OF ACUTE STROKE: Yes RIGHT MCA. Cervical Spine CT 02/12/19 14:30 IMPRESSION: Degenerative disc disease, spondylosis, and facet arthropathy. No acute findings. Chest X-Ray 02/13/19 08:00 IMPRESSION: Linear lingular opacities likely atelectasis. Stable borderline enlarged cardiac silhouette without evidence of failure. Assessment & Plan - Diagnosis (1) Acute right MCA stroke Is this a current diagnosis for this admission?: Yes (2) Atrial fibrillation with RVR Is this a current diagnosis for this admission?: Yes (3) Fall at home Qualifiers: Encounter type: initial encounter Qualified Code(s): W19.XXXA - Unspecified fall, initial encounter; Y92.009 - Unspecified place in unspecified non- institutional (private) residence as the place of occurrence of the external cause Is this a current diagnosis for this admission?: Yes (4) Rhabdomyolysis Qualifiers: Rhabdomyolysis type: traumatic Encounter type: initial encounter Qualified Code(s): T79.6XXA - Traumatic ischemia of muscle, initial encounter Is this a current diagnosis for this admission?: Yes (5) HTN (hypertension) Qualifiers: Hypertension type: essential hypertension Qualified Code(s): I10 - Essential (primary) hypertension Is this a current diagnosis for this admission?: Yes (6) Cervical spondylosis Qualifiers: Spinal osteoarthritis complication: without myelopathy or radiculopathy Qualified Code(s): M47.812 - Spondylosis without myelopathy or radiculopathy, cervical region Is this a current diagnosis for this admission?: Yes - Time Time Spent with patient: 25-34 minutes Medications reviewed and adjusted accordingly: Yes Anticipated discharge: SNF Within: Other - Inpatient Certification Based on my medical assessment, after consideration of the patient's comorbidities, presenting symptoms, or acuity I expect that the services needed warrant INPATIENT care.: Yes I certify that my determination is in accordance with my understanding of Medicare's requirements for reasonable and necessary INPATIENT services [42 CFR 412.3e].: Yes Medical Necessity: Significant Comorbidiites Make Outpatient Treatment Too Risky, Need Close Monitoring Due to Risk of Patient Decompensation, Need For IV Fluids, Need For Continuous Telemetry Monitoring, Risk of Complication if Not Cared For in Hospital, Risk of Diagnosis Which Will Require Inpatient Eval/Care/Monitoring Post Hospital Care: D/C or Transfer Summary - Plan Summary Plan Summary: D/C IV Cardizem and Digoxin. Start on Cardizem 60 mg po q 6 hours. Maintain on I V Vasotec on prn basis for sbp > 160mmHg. Continue all other current medication management.
[2019-02-15] MEDS: DILTIAZEM HCL 60 MG TABLET PO SCH ×2 (16:56→23:27)
--- NOTE | 2019-02-15 19:22 | PDOC CONSULTATION ---
Consultation Consult Date: 02/15/19 Consult reason:: pressure sore right buttock History of Present Illness Admission Date/PCP: 02/12/19 16:57 Patient complains of: mental change History of Present Illness: CAYLA DE LA CRUZ is a 83 year old female who was admitted for CVA. Found on the floor of her bedroom with facial droop unable to communicate and with AFIB and RVR. Referred to us because of pressure sore on the right buttock. Had history of Rhabdomyolysis. Past Medical History Cardiac Medical History: Reports: Hypertension Musculoskeltal Medical History: Reports: Arthritis Past Surgical History Past Surgical History: Reports: Section - x3 Social History Lives with: Alone Smoking Status: Never Smoker Frequency of Alcohol Use: None Hx Recreational Drug Use: No Hx Prescription Drug Abuse: No - Advance Directive Resuscitation Status: Full Code Family History Family History: Reviewed & Not Pertinent Parental Family History Reviewed: Yes Children Family History Reviewed: No Sibling(s) Family History Reviewed.: No Medication/Allergy Home Medications: Amlodipine/Valsartan [Exforge 10-320 mg Tablet] 1 tab PO DAILY 02/12/19 Metoprolol Succinate [Toprol Xl 25 mg Tab.sr] 25 mg PO QAM 02/12/19 Allergies/Adverse Reactions: No Known Allergies Allergy (Verified 02/04/13 14:12) Review of Systems Constitutional: PRESENT: other - no fever/chills Respiratory: PRESENT: other - no chest pains/cough Neurological: PRESENT: weakness Physical Exam Vital Signs: Temp Pulse Resp BP Pulse Ox 98.7 F 163 H 14 163/105 H 99 02/15/19 11:48 02/15/19 16:00 02/15/19 11:48 02/15/19 16:00 02/15/19 11:48 Intake & Output 02/14/19 02/15/19 02/16/19 06:59 06:59 06:59 Intake Total 1271 4267 1195 Output Total 1100 3970 700 Balance 171 2017 495 Weight 97.8 kg 99 kg General appearance: PRESENT: no acute distress Eye exam: PRESENT: conjunctiva pink Mouth exam: PRESENT: moist Neck exam: PRESENT: full ROM Respiratory exam: PRESENT: clear to auscultation vanessa Cardiovascular exam: PRESENT: irregular rhythm Pulses: PRESENT: normal radial pulses Vascular exam: PRESENT: normal capillary refill GI/Abdominal exam: PRESENT: soft Rectal exam: PRESENT: deferred Musculoskeletal exam: PRESENT: other - Right buttock(Gluteal) area with an 8 mm circumferential darkly discolored skin without obvious abscess underneath with minimal tenderness. Neurological exam: PRESENT: alert, oriented to person, oriented to place, oriented to time, oriented to situation Psychiatric exam: PRESENT: appropriate affect Skin exam: PRESENT: normal color, warm Results Laboratory Results: 02/14/19 09:02 02/14/19 19:48 02/14/19 19:48 Sodium 140.6 Potassium 3.5 L Chloride 112 H Carbon Dioxide 23 Anion Gap 6 BUN 15 Creatinine 0.59 Est GFR ( Amer) > 60 Est GFR (Non-Af Amer) > 60 Glucose 111 H Calcium 10.0 Magnesium 2.0 02/12/19 02/12/19 02/12/19 14:45 14:45 20:44 Creatine Kinase 5597 H 6007 H CK-MB (CK-2) 11.40 H Troponin I 0.054 02/12/19 02/13/19 02/13/19 20:44 02:50 02:50 Creatine Kinase 4201 H CK-MB (CK-2) 10.20 H 5.64 H Troponin I 0.056 0.062 02/13/19 02/13/19 09:15 09:15 Creatine Kinase 3157 H CK-MB (CK-2) 4.21 Troponin I 0.044 Impressions: Carotid Doppler Study 02/12/19 00:00 IMPRESSION: 1. Atherosclerosis 2. Bilateral internal carotid artery 50-69% stenosis 3. Right vertebral artery flow could not be identified; it may be occluded. 4. Normal antegrade flow in the left vertebral artery. Head CT 02/12/19 14:28 IMPRESSION: There appears to be acute infarction involving a branch or branches of the right middle cerebral artery. EVIDENCE OF ACUTE STROKE: Yes RIGHT MCA. Cervical Spine CT 02/12/19 14:30 IMPRESSION: Degenerative disc disease, spondylosis, and facet arthropathy. No acute findings. Chest X-Ray 02/13/19 08:00 IMPRESSION: Linear lingular opacities likely atelectasis. Stable borderline enlarged cardiac silhouette without evidence of failure. Assessment & Plan - Diagnosis (1) Pressure ulcer of right buttock, stage 2 Is this a current diagnosis for this admission?: Yes (2) Acute right MCA stroke Is this a current diagnosis for this admission?: Yes (3) Atrial fibrillation with RVR Is this a current diagnosis for this admission?: Yes (4) Fall at home Qualifiers: Encounter type: initial encounter Qualified Code(s): W19.XXXA - Unspecified fall, initial encounter; Y92.009 - Unspecified place in unspecified non- institutional (private) residence as the place of occurrence of the external cause Is this a current diagnosis for this admission?: Yes (5) HTN (hypertension) Qualifiers: Hypertension type: essential hypertension Qualified Code(s): I10 - Essential (primary) hypertension Is this a current diagnosis for this admission?: Yes - Time Time Spent: 30 to 50 Minutes - Inpatient Certification Medical Necessity: Need Close Monitoring Due to Risk of Patient Decompensation, Risk of Complication if Not Cared For in Hospital - Plan Summary Plan Summary: Patient has a stage1-2 pressure sore at the right buttock. No apparent abscess formation noted. No urgent need to debride at this time since this sore is dry without underlying abscess. Went over with the nurse at bedside about keeping it dry with Allevyn dressing. Frequent turning to sides to avoid pressure and to make sure patient has good nutritional intake. Will re-evaluate in 2-3 days.
[2019-02-15] MEDS: ENALAPRILAT DIHYDRATE INJ/PF 1.25 MG/1 ML SDV IV PRN (20:52)
--- NOTE | 2019-02-15 21:11 | XCELERA REPORT ---
[address] [address] Transthoracic Echocardiogram Report Name: CAYLA DE LA CRUZ Age: 83 yrs Gender: Female : 1935 Patient Status: Inpatient Patient Location: [address] [place] [address] Study Date: 02/13/2019 09:51 AM Height: 66 in Weight: 201 lb BSA: 2.0 m2 Procedure: A two-dimensional transthoracic echocardiogram with color flow and Doppler was performed. The study was technically difficult with many images being suboptimal in quality. Reason For Study: Acute stroke with persistent A.Fib History: CVA. ATRIAL FIBRILLATION. Ordering Physician: ZEINAB THOMAS Performed By: Sera Orellana Interpretation Summary The left ventricle is normal in size. There is normal left ventricular wall thickness. LV EF is 65% The left ventricular ejection fraction is within normal limits. The left ventricular wall motion is normal. There is no thrombus. Cannot assess for ASD ,VSD , or PFO. The right ventricle is grossly normal size. The right atrium is mild to moderately dilated. The left atrium is moderately dilated. There is mild mitral annular calcification. There is no evidence of mitral valve prolapse. There is no vegetation seen on the mitral valve. There is no mitral valve stenosis. There is a trace amount of mitral regurgitation There is no aortic valvular vegetation. There is no aortic valve stenosis There is no LVOT obstruction. No aortic regurgitation is present. There is no tricuspid stenosis. There is a mild amount of tricuspid regurgitation There is mild pulmonary hypertension by echo RVSp is 39 to 44 mm of Hg , with RA mean of 5 to 10. There is no pulmonic valvular stenosis. There is a trace amount of pulmonic regurgitation The aortic root is not well visualized but is probably normal size. The inferior vena cava appeared normal and decreased > 50% with respiration (RAP 5-10 mmHg) Minimal pericardial effusion behind RA. MMode/2D Measurements & Calculations IVSd: 1.0 cm LVIDd: 3.5 cm FS: 27.8 % Ao root diam: 2.4 cm LVIDs: 2.5 cm EDV(Teich): 50.5 ml Ao root area: 4.6 cm2 LVPWd: 1.3 cm ESV(Teich): 22.8 ml EF(Teich): 54.9 % Doppler Measurements & Calculations Ao V2 max: LV V1 max PG: PA V2 max: PI end-d jd: 116.6 cm/sec 2.5 mmHg 89.7 cm/sec 92.8 cm/sec Ao max P.4 mmHg LV V1 max: PA max P.6 cm/sec 3.2 mmHg LV dP/dt: 936.3 mmHg/s TR max jd: 283.3 cm/sec TR max P.2 mmHg Left Ventricle The left ventricle is normal in size. There is normal left ventricular wall thickness. LV EF is 65%. The left ventricular ejection fraction is within normal limits. LV diastolic function could not be adequately assessed due to atrial fibrilation. The left ventricular wall motion is normal. There is no thrombus. Cannot assess for ASD ,VSD , or PFO. Right Ventricle The right ventricle is grossly normal size. Atria The right atrium is mild to moderately dilated. The left atrium is moderately dilated. Mitral Valve There is mild mitral annular calcification. There is no evidence of mitral valve prolapse. There is no vegetation seen on the mitral valve. There is no mitral valve stenosis. There is a trace amount of mitral regurgitation. Aortic Valve There is no aortic valvular vegetation. There is no aortic valve stenosis. There is no LVOT obstruction. No aortic regurgitation is present. Tricuspid Valve There is no tricuspid stenosis. There is a mild amount of tricuspid regurgitation. There is mild pulmonary hypertension by echo. RVSp is 39 to 44 mm of Hg , with RA mean of 5 to 10. Pulmonic Valve There is no pulmonic valvular stenosis. There is a trace amount of pulmonic regurgitation. Great Vessels The aortic root is not well visualized but is probably normal size. The inferior vena cava appeared normal and decreased > 50% with respiration (RAP 5-10 mmHg). Effusions Minimal pericardial effusion behind RA. : ZEINAB THOMAS > Jessica Loyd
[2019-02-16] MEDS: NORMAL SALINE 1000 ML 1,000 ML IV PRN ×2 (02:11→15:37)
[2019-02-16] MEDS: ENALAPRILAT DIHYDRATE INJ/PF 1.25 MG/1 ML SDV IV PRN ×2 (03:30→20:14)
[2019-02-16 04:08] LABS: ABSOLUTE BASOPHILS # (AUTO) 0.1 10^3/uL (0.0-0.2); ABSOLUTE EOSINOPHILS # (AUTO) 0.4 10^3/uL (0.0-0.6); ABSOLUTE LYMPHOCYTES (AUTO) 1.1 10^3/uL (0.5-4.7); ABSOLUTE MONOCYTES (AUTO) 0.7 10^3/uL (0.1-1.4); ABSOLUTE NEUT (AUTO) 6.5 10^3/uL (1.7-8.2); BASOPHILS % (AUTO) 0.8 % (0-2); EOSINOPHILS % (AUTO) 4.9 % (0-6); HEMATOCRIT 41.2 % (36.0-47.0); HEMOGLOBIN 13.8 g/dL (12.0-15.5); LYMPHOCYTES % (AUTO) 12.9 % (13-45); MEAN CORPUSCULAR HEMOGLOBIN 27.5 pg (27.0-33.4); MEAN CORPUSCULAR HGB CONC 33.4 g/dL (32.0-36.0); MEAN CORPUSCULAR VOLUME 83 fl (80-97); MONOCYTES % (AUTO) 7.6 % (3-13); PLATELET COUNT 249 10^3/uL (150-450); RED CELL DISTRIBUTION WIDTH 14.4 % (11.5-14.0); SEGMENTED NEUTROPHILS % (AUTO) 73.8 % (42-78); TOTAL CELLS COUNTED % (AUTO) 100 %; WHITE BLOOD COUNT 8.9 10^3/uL (4.0-10.5)
[2019-02-16 04:24] LABS: ALANINE AMINOTRANSFERASE 43 U/L (9-52); ALBUMIN 2.8 g/dL (3.5-5.0); ALKALINE PHOSPHATASE 90 U/L (38-126); ANION GAP 6 (5-19); ASPARTATE AMINO TRANSFERASE 43 U/L (14-36); BILIRUBIN,DIRECT 0.4 mg/dL (0.0-0.4); BILIRUBIN,TOTAL 1.2 mg/dL (0.2-1.3); BLOOD UREA NITROGEN 10 mg/dL (7-20); CALCIUM 9.9 mg/dL (8.4-10.2); CARBON DIOXIDE 24 mmol/L (22-30); CHLORIDE 110 mmol/L (98-107); CREATINE KINASE 387 U/L (30-135); GLUCOSE 108 mg/dL (75-110); POTASSIUM 3.2 mmol/L (3.6-5.0); SODIUM 139.9 mmol/L (137-145); TOTAL PROTEIN 5.5 g/dL (6.3-8.2)
[2019-02-16 04:33] LABS: CREATINE KINASE MB 0.54 ng/mL (<4.55)
[2019-02-16 04:35] LABS: TROPONIN I < 0.012 ng/mL
[2019-02-16] MEDS: DILTIAZEM HCL 60 MG TABLET PO SCH ×3 (05:24→17:44)
[2019-02-16] MEDS: PANTOPRAZOLE SODIUM 40 MG TABLET.DR PO SCH ×2 (05:24→17:44)
[2019-02-16] MEDS ORDERED: ASPIRIN 81 MG TABLET, ENT COATED PO SCH (10:00)
[2019-02-16] MEDS: ASPIRIN 81 MG TABLET, ENT COATED PO SCH (10:02)
--- NOTE | 2019-02-16 10:49 | PDOC PROGRESS REPORT ---
Subjective Progress Note for:: 02/16/19 Subjective:: Patient is alert awake oriented Denied any chest pain to than any shortness of the breath No abdominal pain Patient off the Cardizem drip currently p.o. Cardizem Patient have a episode of hematuria this morning but currently all clear after holding the Lovenox patient Patient have a history of the A. fib as per discussed with the Dr. Oneil currently hold the anticoagulation is due to the hematuria episode once his get better consider start on Eliquis Reason For Visit: ACUTE LEFT MCA STROKE;PERSISTENT ATRIAL Physical Exam Vital Signs: Temp Pulse Resp BP Pulse Ox 97.9 F 101 H 18 151/83 H 97 02/16/19 08:21 02/16/19 08:21 02/16/19 08:21 02/16/19 08:21 02/16/19 08:21 Intake & Output 02/15/19 02/16/19 02/17/19 06:59 06:59 06:59 Intake Total 4267 2585 783 Output Total 2250 4175 Balance 2016 783 Weight 99 kg 97.9 kg General appearance: PRESENT: no acute distress, well-developed, well-nourished Head exam: PRESENT: atraumatic, normocephalic Eye exam: PRESENT: conjunctiva pink, EOMI, PERRLA. ABSENT: scleral icterus Ear exam: PRESENT: normal external ear exam Mouth exam: PRESENT: moist, tongue midline Neck exam: PRESENT: full ROM. ABSENT: carotid bruit, JVD, lymphadenopathy, thyromegaly Respiratory exam: PRESENT: clear to auscultation vanessa Cardiovascular exam: PRESENT: RRR. ABSENT: diastolic murmur, rubs, systolic murmur Vascular exam: PRESENT: normal capillary refill GI/Abdominal exam: PRESENT: normal bowel sounds, soft. ABSENT: distended, guarding, mass, organolmegaly, rebound, tenderness Rectal exam: PRESENT: deferred Extremities exam: ABSENT: pedal edema Neurological exam: PRESENT: alert, awake, oriented to person, oriented to place, oriented to time, oriented to situation. ABSENT: motor sensory deficit Psychiatric exam: PRESENT: appropriate affect, normal mood. ABSENT: homicidal ideation, suicidal ideation Skin exam: PRESENT: dry, intact, warm. ABSENT: cyanosis, rash Results Laboratory Results: 02/16/19 03:55 02/16/19 03:55 02/16/19 02/16/19 03:55 03:55 WBC 8.9 RBC 5.00 Hgb 13.8 Hct 41.2 MCV 83 MCH 27.5 MCHC 33.4 RDW 14.4 H Plt Count 249 Seg Neutrophils % 73.8 Lymphocytes % 12.9 L Monocytes % 7.6 Eosinophils % 4.9 Basophils % 0.8 Absolute Neutrophils 6.5 Absolute Lymphocytes 1.1 Absolute Monocytes 0.7 Absolute Eosinophils 0.4 Absolute Basophils 0.1 Sodium 139.9 Potassium 3.2 L Chloride 110 H Carbon Dioxide 24 Anion Gap 6 BUN 10 Creatinine 0.62 Est GFR ( Amer) > 60 Est GFR (Non-Af Amer) > 60 Glucose 108 Calcium 9.9 Magnesium 1.8 Total Bilirubin 1.2 AST 43 H ALT 43 Alkaline Phosphatase 90 Total Protein 5.5 L Albumin 2.8 L 02/12/19 02/12/19 02/12/19 14:45 14:45 20:44 Creatine Kinase 5597 H 6007 H CK-MB (CK-2) 11.40 H Troponin I 0.054 02/12/19 02/13/19 02/13/19 20:44 02:50 02:50 Creatine Kinase 4201 H CK-MB (CK-2) 10.20 H 5.64 H Troponin I 0.056 0.062 02/13/19 02/13/19 02/16/19 09:15 09:15 03:55 Creatine Kinase 3157 H 387 H CK-MB (CK-2) 4.21 Troponin I 0.044 02/16/19 03:55 Creatine Kinase CK-MB (CK-2) 0.54 Troponin I < 0.012 Impressions: Carotid Doppler Study 02/12/19 00:00 IMPRESSION: 1. Atherosclerosis 2. Bilateral internal carotid artery 50-69% stenosis 3. Right vertebral artery flow could not be identified; it may be occluded. 4. Normal antegrade flow in the left vertebral artery. Head CT 02/12/19 14:28 IMPRESSION: There appears to be acute infarction involving a branch or branches of the right middle cerebral artery. EVIDENCE OF ACUTE STROKE: Yes RIGHT MCA. Cervical Spine CT 02/12/19 14:30 IMPRESSION: Degenerative disc disease, spondylosis, and facet arthropathy. No acute findings. Chest X-Ray 02/13/19 08:00 IMPRESSION: Linear lingular opacities likely atelectasis. Stable borderline enlarged cardiac silhouette without evidence of failure. Assessment & Plan - Diagnosis (1) Acute right MCA stroke Is this a current diagnosis for this admission?: Yes (2) Hematuria Is this a current diagnosis for this admission?: Yes Plan: all resolving hold lovonox (3) Atrial fibrillation with RVR Is this a current diagnosis for this admission?: Yes (4) Cervical spondylosis Qualifiers: Spinal osteoarthritis complication: without myelopathy or radiculopathy Qualified Code(s): M47.812 - Spondylosis without myelopathy or radiculopathy, cervical region Is this a current diagnosis for this admission?: Yes (5) HTN (hypertension) Qualifiers: Hypertension type: essential hypertension Qualified Code(s): I10 - Essential (primary) hypertension Is this a current diagnosis for this admission?: Yes (6) Pressure ulcer of right buttock, stage 2 Is this a current diagnosis for this admission?: Yes - Time Time Spent with patient: 15-24 minutes Medications reviewed and adjusted accordingly: Yes Anticipated discharge: SNF - Plan Summary Plan Summary: reyna negron
[2019-02-16] MEDS: POTASSIUM CHLORIDE 10 MEQ CAPSULE.ER PO ONE ×2 (12:04→12:20)
[2019-02-16] MEDS ORDERED: POTASSIUM CHLORIDE 20 MEQ PACKET PO ONE (13:00)
[2019-02-17] MEDS: DILTIAZEM HCL 60 MG TABLET PO SCH ×5 (00:15→18:23)
[2019-02-17] MEDS: PANTOPRAZOLE SODIUM 40 MG TABLET.DR PO SCH ×3 (05:31→18:23)
[2019-02-17 09:14] LABS: ABSOLUTE BASOPHILS # (AUTO) 0.1 10^3/uL (0.0-0.2); ABSOLUTE EOSINOPHILS # (AUTO) 0.4 10^3/uL (0.0-0.6); ABSOLUTE LYMPHOCYTES (AUTO) 1.4 10^3/uL (0.5-4.7); ABSOLUTE MONOCYTES (AUTO) 0.6 10^3/uL (0.1-1.4); ABSOLUTE NEUT (AUTO) 8.3 10^3/uL (1.7-8.2); BASOPHILS % (AUTO) 0.8 % (0-2); EOSINOPHILS % (AUTO) 3.7 % (0-6); HEMATOCRIT 43.5 % (36.0-47.0); HEMOGLOBIN 14.4 g/dL (12.0-15.5); LYMPHOCYTES % (AUTO) 12.8 % (13-45); MEAN CORPUSCULAR HEMOGLOBIN 27.6 pg (27.0-33.4); MEAN CORPUSCULAR HGB CONC 33.1 g/dL (32.0-36.0); MEAN CORPUSCULAR VOLUME 83 fl (80-97); MONOCYTES % (AUTO) 5.7 % (3-13); PLATELET COUNT 276 10^3/uL (150-450); RED BLOOD COUNT 5.21 10^6/uL (3.72-5.28); RED CELL DISTRIBUTION WIDTH 14.1 % (11.5-14.0); TOTAL CELLS COUNTED % (AUTO) 100 %; WHITE BLOOD COUNT 10.7 10^3/uL (4.0-10.5)
[2019-02-17] MEDS: ASPIRIN 81 MG TABLET, ENT COATED PO SCH (09:20)
[2019-02-17 09:34] LABS: ANION GAP 9 (5-19); BLOOD UREA NITROGEN 13 mg/dL (7-20); CALCIUM 10.3 mg/dL (8.4-10.2); CARBON DIOXIDE 23 mmol/L (22-30); CHLORIDE 107 mmol/L (98-107); GLUCOSE 149 mg/dL (75-110); POTASSIUM 3.6 mmol/L (3.6-5.0); SODIUM 138.9 mmol/L (137-145)
--- NOTE | 2019-02-17 10:20 | PDOC PROGRESS REPORT ---
Subjective Progress Note for:: 02/17/19 Subjective:: Patient is currently doing well Denied any chest pain to than any shortness of the breath No blood in the urine Patient's blood work is all stable On exam patient have a bit bad sore on the right gluteal area Reason For Visit: ACUTE LEFT MCA STROKE;PERSISTENT ATRIAL Physical Exam Vital Signs: Temp Pulse Resp BP Pulse Ox 98.4 F 96 16 141/88 H 99 02/17/19 07:57 02/17/19 07:57 02/17/19 07:57 02/17/19 07:57 02/17/19 07:57 Intake & Output 02/16/19 02/17/19 02/18/19 06:59 06:59 06:59 Intake Total 2585 1168 Output Total 4175 8795 Balance -1590 -1757 Weight 97.9 kg 95.6 kg General appearance: PRESENT: no acute distress, well-developed, well-nourished Head exam: PRESENT: atraumatic, normocephalic Eye exam: PRESENT: conjunctiva pink, EOMI, PERRLA. ABSENT: scleral icterus Ear exam: PRESENT: normal external ear exam Mouth exam: PRESENT: moist, tongue midline Neck exam: PRESENT: full ROM. ABSENT: carotid bruit, JVD, lymphadenopathy, thyromegaly Respiratory exam: PRESENT: clear to auscultation vanessa Cardiovascular exam: PRESENT: RRR. ABSENT: diastolic murmur, rubs, systolic murmur Vascular exam: PRESENT: normal capillary refill GI/Abdominal exam: PRESENT: normal bowel sounds, soft. ABSENT: distended, guarding, mass, organolmegaly, rebound, tenderness Rectal exam: PRESENT: deferred Extremities exam: ABSENT: pedal edema Neurological exam: PRESENT: alert, awake, oriented to person, oriented to place, oriented to time. ABSENT: motor sensory deficit Psychiatric exam: PRESENT: appropriate affect, normal mood. ABSENT: homicidal ideation, suicidal ideation Skin exam: PRESENT: dry, intact, warm. ABSENT: cyanosis, rash Additonal comments: On the right gluteal area big pressure sore is present Results Laboratory Results: 02/17/19 08:52 02/17/19 08:52 02/17/19 02/17/19 08:52 08:52 WBC 10.7 H RBC 5.21 Hgb 14.4 Hct 43.5 MCV 83 MCH 27.6 MCHC 33.1 RDW 14.1 H Plt Count 276 Seg Neutrophils % 77.0 Lymphocytes % 12.8 L Monocytes % 5.7 Eosinophils % 3.7 Basophils % 0.8 Absolute Neutrophils 8.3 H Absolute Lymphocytes 1.4 Absolute Monocytes 0.6 Absolute Eosinophils 0.4 Absolute Basophils 0.1 Sodium 138.9 Potassium 3.6 Chloride 107 Carbon Dioxide 23 Anion Gap 9 BUN 13 Creatinine 0.62 Est GFR ( Amer) > 60 Est GFR (Non-Af Amer) > 60 Glucose 149 H Calcium 10.3 H 02/12/19 02/12/19 02/12/19 14:45 14:45 20:44 Creatine Kinase 5597 H 6007 H CK-MB (CK-2) 11.40 H Troponin I 0.054 02/12/19 02/13/19 02/13/19 20:44 02:50 02:50 Creatine Kinase 4201 H CK-MB (CK-2) 10.20 H 5.64 H Troponin I 0.056 0.062 02/13/19 02/13/19 02/16/19 09:15 09:15 03:55 Creatine Kinase 3157 H 387 H CK-MB (CK-2) 4.21 Troponin I 0.044 02/16/19 03:55 Creatine Kinase CK-MB (CK-2) 0.54 Troponin I < 0.012 Impressions: Carotid Doppler Study 02/12/19 00:00 IMPRESSION: 1. Atherosclerosis 2. Bilateral internal carotid artery 50-69% stenosis 3. Right vertebral artery flow could not be identified; it may be occluded. 4. Normal antegrade flow in the left vertebral artery. Head CT 02/12/19 14:28 IMPRESSION: There appears to be acute infarction involving a branch or branches of the right middle cerebral artery. EVIDENCE OF ACUTE STROKE: Yes RIGHT MCA. Cervical Spine CT 02/12/19 14:30 IMPRESSION: Degenerative disc disease, spondylosis, and facet arthropathy. No acute findings. Chest X-Ray 02/13/19 08:00 IMPRESSION: Linear lingular opacities likely atelectasis. Stable borderline enlarged cardiac silhouette without evidence of failure. Assessment & Plan - Diagnosis (1) Acute right MCA stroke Is this a current diagnosis for this admission?: Yes (2) Hematuria Is this a current diagnosis for this admission?: Yes Plan: all resolving hold lovonox (3) Atrial fibrillation with RVR Is this a current diagnosis for this admission?: Yes (4) Cervical spondylosis Qualifiers: Spinal osteoarthritis complication: without myelopathy or radiculopathy Qualified Code(s): M47.812 - Spondylosis without myelopathy or radiculopathy, cervical region Is this a current diagnosis for this admission?: Yes (5) HTN (hypertension) Qualifiers: Hypertension type: essential hypertension Qualified Code(s): I10 - Essential (primary) hypertension Is this a current diagnosis for this admission?: Yes (6) Pressure ulcer of right buttock, stage 2 Is this a current diagnosis for this admission?: Yes - Time Time Spent with patient: 15-24 minutes Medications reviewed and adjusted accordingly: Yes Anticipated discharge: SNF - Plan Summary Plan Summary: Continues to current medications
[2019-02-17] MEDS ORDERED: SILVER SULFADIAZINE 1% CREAM 50 GM TP ONE (19:30)
[2019-02-17] MEDS: ENALAPRILAT DIHYDRATE INJ/PF 1.25 MG/1 ML SDV IV PRN (19:46)
[2019-02-18] MEDS: DILTIAZEM HCL 60 MG TABLET PO SCH ×2 (00:09→05:32)
[2019-02-18] MEDS: PANTOPRAZOLE SODIUM 40 MG TABLET.DR PO SCH ×2 (05:32→18:23)
[2019-02-18 07:11] LABS: ANION GAP 9 (5-19); BLOOD UREA NITROGEN 15 mg/dL (7-20); CALCIUM 10.3 mg/dL (8.4-10.2); CARBON DIOXIDE 26 mmol/L (22-30); CHLORIDE 104 mmol/L (98-107); GLUCOSE 98 mg/dL (75-110); POTASSIUM 3.5 mmol/L (3.6-5.0)
--- NOTE | 2019-02-18 08:41 | PDOC PROGRESS REPORT ---
Subjective Progress Note for:: 02/18/19 Subjective:: Patient had episode of resolved hematuria over the weekend. She has indwelling Mars catheter. No nausea, vomiting, or abdominal pain. No reported chest pain or difficulty with breathing. Reason For Visit: ACUTE LEFT MCA STROKE;PERSISTENT ATRIAL Physical Exam Vital Signs: Temp Pulse Resp BP Pulse Ox 97.6 F 103 H 16 178/100 H 98 02/18/19 07:50 02/18/19 07:50 02/18/19 07:50 02/18/19 07:50 02/18/19 07:50 Intake & Output 02/17/19 02/18/19 02/19/19 06:59 06:59 06:59 Intake Total 1168 1252 Output Total 2925 1025 Balance -1757 227 Weight 95.6 kg 94.4 kg Physical Exam: General appearance: PRESENT: no acute distress Head exam: PRESENT: atraumatic, normocephalic Eye exam: PRESENT: conjunctiva pink. ABSENT: pallor, scleral Icarus Ear exam: PRESENT: normal external ear exam Mouth exam: PRESENT: moist Respiratory exam: PRESENT: clear to auscultation vanessa, decreased breath sounds Cardiovascular exam: PRESENT: irregular rhythm, +S1, +S2. ABSENT: diastolic murmur, systolic murmur GI/Abdominal exam: PRESENT: normal bowel sounds, soft. ABSENT: distended, guarding, mass, organomegaly, rebound, tenderness Extremities exam: ABSENT: pedal edema Neurological exam: PRESENT: altered, awake, other - improving left hemiparesis with facial droop Psychiatric exam: PRESENT: appropriate affect, normal mood Skin exam: PRESENT: dry, warm, other - left buttock pressure ulcer with central area of early developing eschar. Results Laboratory Results: 02/17/19 08:52 02/18/19 06:17 02/17/19 02/17/19 02/18/19 08:52 08:52 06:17 WBC 10.7 H RBC 5.21 Hgb 14.4 Hct 43.5 MCV 83 MCH 27.6 MCHC 33.1 RDW 14.1 H Plt Count 276 Seg Neutrophils % 77.0 Lymphocytes % 12.8 L Monocytes % 5.7 Eosinophils % 3.7 Basophils % 0.8 Absolute Neutrophils 8.3 H Absolute Lymphocytes 1.4 Absolute Monocytes 0.6 Absolute Eosinophils 0.4 Absolute Basophils 0.1 Sodium 138.9 139.0 Potassium 3.6 3.5 L Chloride 107 104 Carbon Dioxide 23 26 Anion Gap 9 9 BUN 13 15 Creatinine 0.62 0.73 Est GFR ( Amer) > 60 > 60 Est GFR (Non-Af Amer) > 60 > 60 Glucose 149 H 98 Calcium 10.3 H 10.3 H 02/16/19 06:30 Mars Catheter Urine Culture - Final Escherichia Coli 02/12/19 02/12/19 02/12/19 14:45 14:45 20:44 Creatine Kinase 5597 H 6007 H CK-MB (CK-2) 11.40 H Troponin I 0.054 02/12/19 02/13/19 02/13/19 20:44 02:50 02:50 Creatine Kinase 4201 H CK-MB (CK-2) 10.20 H 5.64 H Troponin I 0.056 0.062 02/13/19 02/13/19 02/16/19 09:15 09:15 03:55 Creatine Kinase 3157 H 387 H CK-MB (CK-2) 4.21 Troponin I 0.044 02/16/19 03:55 Creatine Kinase CK-MB (CK-2) 0.54 Troponin I < 0.012 Impressions: Carotid Doppler Study 02/12/19 00:00 IMPRESSION: 1. Atherosclerosis 2. Bilateral internal carotid artery 50-69% stenosis 3. Right vertebral artery flow could not be identified; it may be occluded. 4. Normal antegrade flow in the left vertebral artery. Head CT 02/12/19 14:28 IMPRESSION: There appears to be acute infarction involving a branch or branches of the right middle cerebral artery. EVIDENCE OF ACUTE STROKE: Yes RIGHT MCA. Cervical Spine CT 02/12/19 14:30 IMPRESSION: Degenerative disc disease, spondylosis, and facet arthropathy. No acute findings. Chest X-Ray 02/13/19 08:00 IMPRESSION: Linear lingular opacities likely atelectasis. Stable borderline enlarged cardiac silhouette without evidence of failure. Assessment & Plan - Diagnosis (1) Acute right MCA stroke Is this a current diagnosis for this admission?: Yes (2) Atrial fibrillation with RVR Is this a current diagnosis for this admission?: Yes (3) Fall at home Qualifiers: Encounter type: initial encounter Qualified Code(s): W19.XXXA - Unspecified fall, initial encounter; Y92.009 - Unspecified place in unspecified non- institutional (private) residence as the place of occurrence of the external cause Is this a current diagnosis for this admission?: Yes (4) Rhabdomyolysis Qualifiers: Rhabdomyolysis type: traumatic Encounter type: initial encounter Qualified Code(s): T79.6XXA - Traumatic ischemia of muscle, initial encounter Is this a current diagnosis for this admission?: Yes (5) HTN (hypertension) Qualifiers: Hypertension type: essential hypertension Qualified Code(s): I10 - Essential (primary) hypertension Is this a current diagnosis for this admission?: Yes (6) Cervical spondylosis Qualifiers: Spinal osteoarthritis complication: without myelopathy or radiculopathy Qualified Code(s): M47.812 - Spondylosis without myelopathy or radiculopathy, cervical region Is this a current diagnosis for this admission?: Yes (7) E. coli UTI (urinary tract infection) Is this a current diagnosis for this admission?: Yes Plan: Start on IV Rocephin coverage based on culture findings. - Time Time Spent with patient: 25-34 minutes Medications reviewed and adjusted accordingly: Yes Anticipated discharge: SNF Within: Other - Inpatient Certification Based on my medical assessment, after consideration of the patient's comorbidities, presenting symptoms, or acuity I expect that the services needed warrant INPATIENT care.: Yes I certify that my determination is in accordance with my understanding of Medicare's requirements for reasonable and necessary INPATIENT services [42 CFR 412.3e].: Yes Medical Necessity: Significant Comorbidiites Make Outpatient Treatment Too Ri sonny, Need Close Monitoring Due to Risk of Patient Decompensation, Need For IV Fluids, Need For Continuous Telemetry Monitoring, Need for IV Antibiotics, Risk of Complication if Not Cared For in Hospital, Risk of Diagnosis Which Will Require Inpatient Eval/Care/Monitoring Post Hospital Care: D/C or Transfer Summary - Plan Summary Plan Summary: Start on IV Rocephin coverage. Start on adjusted dose Eliquis at 2.5 mg po bid and Cardizem CD 1980 mg po q12 hours for A.Fib management. Maintain on IV Enalapril 0.625 mg q6 hours for sbp > 140mmHg
[2019-02-18] MEDS ORDERED: CEFTRIAXONE 1 GM/D5W RTU 1 GM/50 ML RTUPB IV SCH (10:00)
[2019-02-18] MEDS: DILTIAZEM HCL 180 MG CAPSULE.CR PO SCH ×2 (10:06→21:04)
[2019-02-18] MEDS: POTASSIUM CHLORIDE 10 MEQ CAPSULE.ER PO SCH ×2 (10:06→18:22)
[2019-02-18] MEDS: CEFTRIAXONE SODIUM 1,000 MG in DEXTROSE 5%-WATER 50 ML IV SCH (10:06)
[2019-02-18] MEDS: ASPIRIN 81 MG TABLET, ENT COATED PO SCH (10:06)
[2019-02-18] MEDS: APIXABAN 2.5 MG TABLET PO SCH ×2 (10:06→18:23)
[2019-02-18] MEDS: SILVER SULFADIAZINE 1% CREAM 50 GM TP SCH (10:07)
[2019-02-18] MEDS: POTASSIUM CHLORIDE 20 MEQ PACKET PO SCH ×2 (11:07→14:12)
[2019-02-18] MEDS ORDERED: ACETAMINOPHEN 325 MG TABLET PO PRN (21:11)
[2019-02-19] MEDS: ENALAPRILAT DIHYDRATE INJ/PF 1.25 MG/1 ML SDV IV PRN ×2 (04:26→23:52)
[2019-02-19] MEDS: PANTOPRAZOLE SODIUM 40 MG TABLET.DR PO SCH ×2 (05:29→16:40)
[2019-02-19 08:00] LABS: ANION GAP 7 (5-19); BLOOD UREA NITROGEN 17 mg/dL (7-20); CALCIUM 10.2 mg/dL (8.4-10.2); CARBON DIOXIDE 26 mmol/L (22-30); CHLORIDE 105 mmol/L (98-107); GLUCOSE 103 mg/dL (75-110); POTASSIUM 4.1 mmol/L (3.6-5.0); SODIUM 137.7 mmol/L (137-145)
--- NOTE | 2019-02-19 08:03 | PDOC PROGRESS REPORT ---
Subjective Progress Note for:: 02/19/19 Subjective:: Patient denied any chest pain or difficulty with breathing. No fever, chills, or recurrent hematuria. No nausea, vomiting, or abdominal pain. Reason For Visit: ACUTE LEFT MCA STROKE;PERSISTENT ATRIAL Physical Exam Vital Signs: Temp Pulse Resp BP Pulse Ox 98.4 F 95 22 H 148/89 H 100 02/19/19 03:49 02/19/19 07:00 02/19/19 03:49 02/19/19 05:25 02/19/19 03:49 Intake & Output 02/18/19 02/19/19 02/20/19 06:59 06:59 06:59 Intake Total 1252 890 Output Total 1025 1800 Balance 227 -910 Weight 94.4 kg 95.2 kg Physical Exam: General appearance: PRESENT: no acute distress Head exam: PRESENT: atraumatic, normocephalic Eye exam: PRESENT: conjunctiva pink. ABSENT: pallor, scleral Icarus Ear exam: PRESENT: normal external ear exam Mouth exam: PRESENT: moist Respiratory exam: PRESENT: clear to auscultation vanessa, decreased breath sounds Cardiovascular exam: PRESENT: irregular rhythm, +S1, +S2. ABSENT: diastolic murmur, systolic murmur GI/Abdominal exam: PRESENT: normal bowel sounds, soft. ABSENT: distended, guarding, mass, organomegaly, rebound, tenderness Extremities exam: ABSENT: pedal edema Neurological exam: PRESENT: altered, awake, other - improving left hemiparesis with facial droop Psychiatric exam: PRESENT: appropriate affect, normal mood Skin exam: PRESENT: dry, warm, other - left buttock pressure ulcer Allevyn dressing in place. Results Laboratory Results: 02/17/19 08:52 02/16/19 06:30 Masr Catheter Urine Culture - Final Escherichia Coli 02/12/19 02/12/19 02/12/19 14:45 14:45 20:44 Creatine Kinase 5597 H 6007 H CK-MB (CK-2) 11.40 H Troponin I 0.054 02/12/19 02/13/19 02/13/19 20:44 02:50 02:50 Creatine Kinase 4201 H CK-MB (CK-2) 10.20 H 5.64 H Troponin I 0.056 0.062 02/13/19 02/13/19 02/16/19 09:15 09:15 03:55 Creatine Kinase 3157 H 387 H CK-MB (CK-2) 4.21 Troponin I 0.044 02/16/19 03:55 Creatine Kinase CK-MB (CK-2) 0.54 Troponin I < 0.012 Impressions: Carotid Doppler Study 02/12/19 00:00 IMPRESSION: 1. Atherosclerosis 2. Bilateral internal carotid artery 50-69% stenosis 3. Right vertebral artery flow could not be identified; it may be occluded. 4. Normal antegrade flow in the left vertebral artery. Head CT 02/12/19 14:28 IMPRESSION: There appears to be acute infarction involving a branch or branches of the right middle cerebral artery. EVIDENCE OF ACUTE STROKE: Yes RIGHT MCA. Cervical Spine CT 02/12/19 14:30 IMPRESSION: Degenerative disc disease, spondylosis, and facet arthropathy. No acute findings. Chest X-Ray 02/13/19 08:00 IMPRESSION: Linear lingular opacities likely atelectasis. Stable borderline enlarged cardiac silhouette without evidence of failure. Assessment & Plan - Diagnosis (1) Acute right MCA stroke Is this a current diagnosis for this admission?: Yes (2) Atrial fibrillation with RVR Is this a current diagnosis for this admission?: Yes (3) Fall at home Qualifiers: Encounter type: initial encounter Qualified Code(s): W19.XXXA - Unspecified fall, initial encounter; Y92.009 - Unspecified place in unspecified non- institutional (private) residence as the place of occurrence of the external cause Is this a current diagnosis for this admission?: Yes (4) Rhabdomyolysis Qualifiers: Rhabdomyolysis type: traumatic Encounter type: initial encounter Qualified Code(s): T79.6XXA - Traumatic ischemia of muscle, initial encounter Is this a current diagnosis for this admission?: Yes (5) HTN (hypertension) Qualifiers: Hypertension type: essential hypertension Qualified Code(s): I10 - Essential (primary) hypertension Is this a current diagnosis for this admission?: Yes Plan: Start on Losartan 50 mg po daily (6) Cervical spondylosis Qualifiers: Spinal osteoarthritis complication: without myelopathy or radiculopathy Qualified Code(s): M47.812 - Spondylosis without myelopathy or radiculopathy, cervical region Is this a current diagnosis for this admission?: Yes (7) E. coli UTI (urinary tract infection) Is this a current diagnosis for this admission?: Yes - Time Time Spent with patient: 25-34 minutes Medications reviewed and adjusted accordingly: Yes Within: Other - Inpatient Certification Based on my medical assessment, after consideration of the patient's comorbidities, presenting symptoms, or acuity I expect that the services needed warrant INPATIENT care.: Yes I certify that my determination is in accordance with my understanding of Medicare's requirements for reasonable and necessary INPATIENT services [42 CFR 412.3e].: Yes Medical Necessity: Significant Comorbidiites Make Outpatient Treatment Too Risky, Need Close Monitoring Due to Risk of Patient Decompensation, Need For IV Fluids, Risk of Complication if Not Cared For in Hospital, Risk of Diagnosis W hich Will Require Inpatient Eval/Care/Monitoring Post Hospital Care: D/C or Transfer Summary - Plan Summary Plan Summary: Start on Losartan 50 mg po daily. Continue all other current medication management. Follow up on acute rehab placement efforts.
[2019-02-19] MEDS: DILTIAZEM HCL 180 MG CAPSULE.CR PO SCH ×2 (09:16→21:17)
[2019-02-19] MEDS: APIXABAN 2.5 MG TABLET PO SCH ×2 (09:16→17:28)
[2019-02-19] MEDS: LOSARTAN POTASSIUM 50 MG TABLET PO SCH (09:16)
[2019-02-19] MEDS: ASPIRIN 81 MG TABLET, ENT COATED PO SCH (09:16)
[2019-02-19] MEDS: CEFTRIAXONE SODIUM 1,000 MG in DEXTROSE 5%-WATER 50 ML IV SCH (09:17)
[2019-02-19] MEDS: SILVER SULFADIAZINE 1% CREAM 50 GM TP SCH (09:17)
--- NOTE | 2019-02-19 13:20 | PDOC CONSULTATION ---
Consultation Consult Date: 02/19/19 Consult reason:: Evaluation for admission to acute inpatient rehabilitation History of Present Illness Admission Date/PCP: 02/12/19 16:57 Patient complains of: Cough with swallowing History of Present Illness: TOMASA PASTOR is a 83-year-old right-handed female with past medical history of osteoarthritis and hypertension as well as cataracts pending cataract removal admitted to [facility] on 02/12/2019 after being found down in her home by her daughter. The patient may have been down for over 24 hours. She was found to have difficulty with speaking as well as a left facial droop. EMS was called and found that the patient had atrial fibrillation with RVR. She was started on IV Cardizem and transferred to the emergency department, where CT head confirmed a right MCA territory CVA. Laboratory studies further demonstrated evidence of acute rhabdomyolysis, for which the patient was treated with IV fluids. Echocardiogram demonstrated LVEF of 65% with normal wall motion and no thrombus. Carotid duplex demonstrated 50-69% stenosis of bilateral internal carotid arteries with possible occlusion of the right vertebral artery and normal antegrade flow in the left vertebral artery. Laboratory studies demonstrated hemoglobin A1c of 5.6%, total cholesterol of 123, and LDL of 61. Creatinine kinase has steadily declined and is nearly normalized. The patient's atrial fibrillation has remained persistent but is now rate controlled with Cardizem 180 mg every 12 hours, and her blood pressure is slowly being normalized. She has been started on anticoagulation with Eliquis 2.5 mg twice daily for her persistent atrial fibrillation. She has also been started on aspirin 81 mg daily for secondary stroke prophylaxis. The patient was also found to have a stage I-II pressure ulcer on her right buttock, for which she was evaluated by general surgery and does not require surgical intervention. Finally, she was found to have an E. coli urinary tract infection and is being treated with antibiotics. Physical medicine and rehabilitation consultation was requested to evaluate the patient for admission to acute inpatient rehabilitati on. Today, the patient was seen and examined with her [id number] at bedside. The patient complains of some difficulty swallowing/cough while eating. Her last bowel movement was yesterday, and she has a Mars catheter in place with clear yellow urine. Past Medical History Cardiac Medical History: Reports: Hypertension Musculoskeltal Medical History: Reports: Arthritis Past Surgical History Past Surgical History: Reports: Section - x3 Social History Lives with: Alone Smoking Status: Never Smoker Frequency of Alcohol Use: None Hx Recreational Drug Use: No Hx Prescription Drug Abuse: No Past Social History Note: Tomasa Pastor lives alone in a 1 level home with 0 steps to enter and 2 steps to the bedroom and bathroom. She does not smoke, drink alcohol, or use drugs. She has multiple family members in the area that can provide assistance as needed upon discharge. Prior Functional Status: Active and independent with mobility and all ADLs. Ambulates with a quad cane. Current Functional Status: Per therapy notes, the patient currently requires minimum assistance of 2 people for bed mobility, transfers, and sidestepping x5 with a rolling walker as well as dependent assistance for toileting. She was evaluated by speech therapy and recommended a mechanical soft solids with thin liquids diet. - Advance Directive Resuscitation Status: Full Code Family History Family History: Reviewed & Not Pertinent Parental Family History Reviewed: Yes Children Family History Reviewed: Yes Sibling(s) Family History Reviewed.: Yes Medication/Allergy Home Medications: Amlodipine/Valsartan [Exforge 10-320 mg Tablet] 1 tab PO DAILY 02/12/19 Metoprolol Succinate [Toprol Xl 25 mg Tab.sr] 25 mg PO QAM 02/12/19 Allergies/Adverse Reactions: No Known Allergies Allergy (Verified 02/04/13 14:12) Review of Systems Review of Systems: Constitutional: No fevers, chills, sweats, weight loss Eye: No blurry vision, no double vision. She does have bilateral cataracts. ENMT: No ear pain, nasal congestion, sore throat Respiratory: No shortness of breath, sputum production. Cough with swallowing. Cardiovascular: No chest pain, palpitations, syncope Gastrointestinal: No nausea, vomiting, diarrhea, abdominal pain Genitourinary: No hematuria, dysuria, flank or suprapubic pain Marcos/Lymph: Negative for bruising tendency, swollen lymph glands Endocrine: Negative for excessive thirst, excessive hunger, extreme fatigue Musculoskeletal: No back pain, neck pain, joint pain, muscle pain, decreased range of motion Integumentary: No rash, pruritus, abrasions Neurologic: No headaches, focal weakness, numbness, speech problems. Psychiatric: No anxiety, depression Physical Exam Vital Signs: Temp Pulse Resp BP Pulse Ox 97.2 F 81 18 137/63 H 99 02/19/19 11:39 02/19/19 11:39 02/19/19 11:39 02/19/19 11:39 02/19/19 11:39 Intake & Output 02/18/19 02/19/19 02/20/19 06:59 06:59 06:59 Intake Total 1252 890 50 Output Total 1025 1800 350 Balance 227 -910 -300 Weight 94.4 kg 95.2 kg Exam: General: Awake and Alert. No acute distress. Resting comfortably in bed with her [id number] at bedside. Head: Normocephalic. Atraumatic. Eyes: Pupils equal, round, and minimally reactive to light. EOMI. Sclera white. There is evidence of cataracts bilaterally. Ears: No drainage noted. Nose: Nares normal & without exudate. Oropharynx: Moist mucous membranes. Neck: Supple movements. Cardiovascular: Irregularly irregular rhythm with normal rate. Pulmonary: Lungs clear to auscultation bilaterally. No increased work of breathing. Gastrointestinal: Abdomen soft, non-tender, non-distended. Normoactive bowel sounds. Skin: Texture and turgor normal. Warm and dry. Skin of the buttock was not visualized due to positional difficulties. Psychiatric: Judgement and insight appear to be good. Patient is oriented to month, year, location, and situation. Affect is somewhat flat. Extremities: Arthritic changes of the feet are noted. Neurological: CN III-XII grossly intact. Sensation to light touch is grossly intact. Tone is normal. Speech is fluent but sparse and without dysarthria. Muscle Strength: She appears to have at least 4/5 strength of all major muscle groups in the upper and lower extremities, but she had some difficulty with following commands for manual muscle testing. Results Laboratory Results: 02/17/19 08:52 02/19/19 05:46 02/19/19 05:46 Sodium 137.7 Potassium 4.1 Chloride 105 Carbon Dioxide 26 Anion Gap 7 BUN 17 Creatinine 0.75 Est GFR ( Amer) > 60 Est GFR (Non-Af Amer) > 60 Glucose 103 Calcium 10.2 02/12/19 02/12/19 02/12/19 14:45 14:45 20:44 Creatine Kinase 5597 H 6007 H CK-MB (CK-2) 11.40 H Troponin I 0.054 02/12/19 02/13/19 02/13/19 20:44 02:50 02:50 Creatine Kinase 4201 H CK-MB (CK-2) 10.20 H 5.64 H Troponin I 0.056 0.062 02/13/19 02/13/19 02/16/19 09:15 09:15 03:55 Creatine Kinase 3157 H 387 H CK-MB (CK-2) 4.21 Troponin I 0.044 02/16/19 03:55 Creatine Kinase CK-MB (CK-2) 0.54 Troponin I < 0.012 Impressions: Carotid Doppler Study 02/12/19 00:00 IMPRESSION: 1. Atherosclerosis 2. Bilateral internal carotid artery 50-69% stenosis 3. Right vertebral artery flow could not be identified; it may be occluded. 4. Normal antegrade flow in the left vertebral artery. Head CT 02/12/19 14:28 IMPRESSION: There appears to be acute infarction involving a branch or branches of the right middle cerebral artery. EVIDENCE OF ACUTE STROKE: Yes RIGHT MCA. Cervical Spine CT 02/12/19 14:30 IMPRESSION: Degenerative disc disease, spondylosis, and facet arthropathy. No acute findings. Chest X-Ray 02/13/19 08:00 IMPRESSION: Linear lingular opacities likely atelectasis. Stable borderline enlarged cardiac silhouette without evidence of failure. Assessment and Plan - Plan Summary Plan Summary: 83-year-old female with CVA, A. fib with RVR, acute urinary tract infection, and rhabdomyolysis. 1. Gait and ADL Dysfunction secondary to CVA, A. fib with RVR, acute urinary tract infection, and rhabdomyolysis. - Continue PT and OT to maximize mobility, safety, endurance, and self-care. 2. CVA without hemiparesis - Needs continued PT & OT & DEBEAKER to maximize functional mobility, safety and self-care as well as communication needs & swallow function. Risk Factor Modification: - Hypertension: Dietary and activity modifications, avoid hypotension and hypertension - Glycemic Control: HgBA1c = 5.6%, continue dietary and activity modifications, avoid hyperglycemia and hypoglycemia - Lipids: LDL is 61, continue dietary and activity modifications - Smoking: Patient does not smoke - Alcohol: Patient does not drink alcohol - Antiplatelet: Continue aspirin 81 mg daily - Cardioembolic Event: The patient has new onset of persistent atrial fibril lation. She is now anticoagulated with Eliquis. Consider increasing dose to 5 mg twice daily as the patient's creatinine is normal and she weighs greater than 60 kg. - Vascular: Carotid duplex demonstrated 50-69% stenosis of bilateral internal carotid arteries with possible occlusion of the right vertebral artery and normal antegrade flow in the left vertebral artery. Could consider CT angiogram or MRA to further delineate flow in the right vertebral artery, although this may not tar heat exchanger cleaner. Additionally, consider referral to vascular surgery as an outpatient for her carotid stenosis. Dysphagia: - Bedside swallow evaluation completed. - Continue mechanical soft solids with thin liquids diet. - Consider modified barium swallow study. - Aspiration precautions, dysphagia diet, DEBEAKER following. VTE Prophylaxis: - Continue anticoagulation with Eliquis Risk of Spasticity: - Continue ROM, positioning. - The patient does not have increased tone. Risk of Contractures: - Continue ROM, positioning. Risk of Constipation: - Continue dietary modifications and encourage fluid intake. - Bowel protocol. Risk of Neurogenic Bladder: - Monitor for retention, incontinence. - Recommend removal of the Mars catheter. - Have patient attempt to void every 3 hours. Encourage patient to be upright to void and to double void. Perform POST VOID residual bladder scan at least once each shift. Record amount voided and post void residual amount. Perform intermittent catheterization if more than 250 ml post void residual urine. Risk of Skin Breakdown: - Frequent turning/position changes. - Optimize nutritional status. 3. Atrial fibrillation with RVR - Now rate controlled with oral Cardizem - Continue anticoagulation with Eliquis, but consider increasing dose to 5 mg twice daily given that the patient's creatinine is normal and she weighs greater than 60 kg 4. Acute urinary tract infection -Continue antibiotics per hospitalist medicine 5. Rhabdomyolysis - Resolving 6. Disposition - Based on the patient's diagnosis, medical co-morbidities, and current functional status, she is a good candidate for acute inpatient rehabilitation as she would benefit from 3 hours per day of intensive therapies in at least 2 disciplines under the close medical supervision of a physician. The patient is expected to make significant gains in a relatively short period of time to the point that she can safely be discharged home with supervision and assistance from family. The patient and her [id number] wish to discuss this option with the patient's children, and they will related their decision to the principal planner. This case was discussed with the patient's acute care therapists, principal planner, and nurse on the floor. Thank you for allowing us to participate in the care of this patient. Please call with any questions. A total of 70 minutes was spent on [id number] communication with the patient and coordination of care.
[2019-02-20] MEDS: PANTOPRAZOLE SODIUM 40 MG TABLET.DR PO SCH (06:46)
--- NOTE | 2019-02-20 08:30 | PDOC TRANSFER SUMMARY ---
General - Admit/Disc Date/PCP Admission Date/Primary Care Provider: 02/12/19 16:57 Discharge Date: 02/20/19 - Discharge Diagnosis (1) Acute right MCA stroke Is this a current diagnosis for this admission?: Yes (2) Atrial fibrillation with RVR Is this a current diagnosis for this admission?: Yes (3) Fall at home Is this a current diagnosis for this admission?: Yes (4) Rhabdomyolysis Is this a current diagnosis for this admission?: Yes (5) HTN (hypertension) Is this a current diagnosis for this admission?: Yes (6) Cervical spondylosis Is this a current diagnosis for this admission?: Yes (7) E. coli UTI (urinary tract infection) Is this a current diagnosis for this admission?: Yes - Additional Information Resuscitation Status: Full Code Prescriptions: Apixaban [Eliquis 2.5 mg Tablet] 2.5 mg PO BID #60 tablet Cephalexin Monohydrate [Keflex 500 mg Capsule] 500 mg PO Q12 #10 capsule Diltiazem HCl [Cardizem Cd 180 mg Capsule] 180 mg PO Q12 #60 capsule.cr Losartan Potassium [Cozaar 50 mg Tablet] 50 mg PO DAILY #30 tablet Silver Sulfadiazine [Silvadene 1% Cream 50 gm] 1 applic TP DAILY #1 tube Home Medications: Apixaban [Eliquis 2.5 mg Tablet] 2.5 mg PO BID #60 tablet 02/20/19 Cephalexin Monohydrate [Keflex 500 mg Capsule] 500 mg PO Q12 #10 capsule Diltiazem HCl [Cardizem Cd 180 mg Capsule] 180 mg PO Q12 #60 capsule.cr 02/20/19 Losartan Potassium [Cozaar 50 mg Tablet] 50 mg PO DAILY #30 tablet 02/20/19 Silver Sulfadiazine [Silvadene 1% Cream 50 gm] 1 applic TP DAILY #1 tube 02/20/19 History of Present Illness Admission Date/PCP: 02/12/19 16:57 ZEINAB THOMAS MD Patient complains of: Fall, Left Sided Weakness History of Present Illness: CAYLA DE LA CRUZ is a 83 year old female patient known to my practice who presented to the ED via EMS due to lack of contact by daughter over preceding 24 hours and upon arrival at patient's resident she was unable to open her door. Upon forced entry, she was found on the floor in her bed room, unable to adequately communicate regarding event that led to her fall and daughter noted left facial droop. The EMS personnel found her in atrial fibrillation with rapid ventricular response in 5the range of 170-190. She had IV Cardizem administration on route to the ED. Her initial evaluation in the ED confirmed her persistent A.Fibrillation with need for IV Cardizem infusion therapy. She had 2 bolus doses of IV Digoxin due to less than optimal response to the IV C ardizem. Her radiographic evaluation did confirm right MCA branches region with acute infarction. Her cervical spine CT was significant for degenerative disc disease with spondylosis. Her blood chemistry revealed elevated CK level in range of acute rhabdomyolysis suggestive of fall and possibly on the floor for a long time. She was advised hospitalization for further evaluation and management. Her known morbidities include Hypertension and Osteoarthritis. Hospital Course Hospital Course: She was admitted for acute right MCA distribution region acute embolic stroke with fall, atrial fibrillation, hypertension and acute rhabdomyolysis. She developed left buttock pressure ulcer due to fall and inability to get off the floor for several hours. She was managed with rate control medication, antihypertensive medication, and eventually started on oral Eliquis for anticoagulation. She had E. coli UTI with episode of hematuria. She was treated with IV Rocephin and will be transfer to acute rehabilitation on Keflex 500 mg p.o bid x 5 days based on culture report. She was seen in consultation by the surgicalist team with regard to her left buttock pressure ulcer and currently recommend conservative comprehensive management. She participated in physical therapy sessions and did show significant improvement in her left hemiparesis. Her cardiac rhythm remain in atrial fibrillation with satisfactory rate control on her current medication management. She may benefit from her Losartan dosage adjustment if systolic blood pressure remain above 140 mmHg. She will benefit from home health agency services upon discharge from the acute rehabilitation facility for home visiting nurse, PT, OT, and CORPORATE DEVELOPMENT MANAGER as indicated at time of discharge. The facility will call my office at [phone] before her discharge for continuum of care and care transition. Physical Exam Vital Signs: Temp Pulse Resp BP Pulse Ox 98.2 F 99 19 146/88 H 99 02/20/19 03:49 02/20/19 03:49 02/20/19 03:49 02/20/19 03:49 02/20/19 03:49 Intake & Output 02/19/19 02/20/19 02/21/19 06:59 06:59 06:59 Intake Total 890 600 Output Total 1800 350 Balance -910 250 Weight 95.2 kg 94.3 kg General appearance: PRESENT: no acute distress Head exam: PRESENT: atraumatic, normocephalic Eye exam: PRESENT: conjunctiva pink. ABSENT: pallor, scleral Icarus Ear exam: PRESENT: normal external ear exam Mouth exam: PRESENT: moist Respiratory exam: PRESENT: clear to auscultation vanessa, decreased breath sounds Cardiovascular exam: PRESENT: irregular rhythm, +S1, +S2. ABSENT: diastolic m urmur, systolic murmur GI/Abdominal exam: PRESENT: normal bowel sounds, soft. ABSENT: distended, gu arding, mass, organomegaly, rebound, tenderness Extremities exam: ABSENT: pedal edema Neurological exam: PRESENT: altered, awake, other - improving left hemiparesis with facial droop Psychiatric exam: PRESENT: appropriate affect, normal mood Skin exam: PRESENT: dry, warm, other - left buttock pressure ulcer with central area of early developing eschar. Results Laboratory Results: 02/17/19 08:52 02/19/19 05:46 02/19/19 05:46 Sodium 137.7 Potassium 4.1 Chloride 105 Carbon Dioxide 26 Anion Gap 7 BUN 17 Creatinine 0.75 Est GFR ( Amer) > 60 Est GFR (Non-Af Amer) > 60 Glucose 103 Calcium 10.2 02/12/19 02/12/19 02/12/19 14:45 14:45 20:44 Creatine Kinase 5597 H 6007 H CK-MB (CK-2) 11.40 H Troponin I 0.054 02/12/19 02/13/19 02/13/19 20:44 02:50 02:50 Creatine Kinase 4201 H CK-MB (CK-2) 10.20 H 5.64 H Troponin I 0.056 0.062 02/13/19 02/13/19 02/16/19 09:15 09:15 03:55 Creatine Kinase 3157 H 387 H CK-MB (CK-2) 4.21 Troponin I 0.044 02/16/19 03:55 Creatine Kinase CK-MB (CK-2) 0.54 Troponin I < 0.012 Impressions: Carotid Doppler Study 02/12/19 00:00 IMPRESSION: 1. Atherosclerosis 2. Bilateral internal carotid artery 50-69% stenosis 3. Right vertebral artery flow could not be identified; it may be occluded. 4. Normal antegrade flow in the left vertebral artery. Head CT 02/12/19 14:28 IMPRESSION: There appears to be acute infarction involving a branch or branches of the right middle cerebral artery. EVIDENCE OF ACUTE STROKE: Yes RIGHT MCA. Cervical Spine CT 02/12/19 14:30 IMPRESSION: Degenerative disc disease, spondylosis, and facet arthropathy. No acute findings. Chest X-Ray 02/13/19 08:00 IMPRESSION: Linear lingular opacities likely atelectasis. Stable borderline enlarged cardiac silhouette without evidence of failure. Transfer Plan - Disposition Transfer Plan: Transfer to acute rehabilitation for post acute stroke management. - Time Spent with Patient Time spent with patient: Greater than 30 Minutes Qualifiers - * PATIENT BEING DISCHARGED WITH ANY OF THE FOLLOWING DIAGNOSIS: Stroke Stroke Pt being discharged on Anti-thrombolytic therapy?: No Reason(s) for not prescribing Anti-thrombolytic therapy:: Medical C ontraindication Stroke Pt being discharged on Anti-coagulation therapy?: Yes Stroke Pt being discharged on Statins?: No Reason(s) for not prescribing Statins therapy:: Not indicated Plan Discharge Plan: Transfer to acute rehabilitation facility to continue acute rehabilitation follo wing acute stroke.
[2019-02-20 08:53] VITALS: BP 141/72
[2019-02-20] MEDS: DILTIAZEM HCL 180 MG CAPSULE.CR PO SCH (10:18)
[2019-02-20] MEDS: APIXABAN 2.5 MG TABLET PO SCH (10:18)
[2019-02-20] MEDS: ASPIRIN 81 MG TABLET, ENT COATED PO SCH (10:18)
[2019-02-20] MEDS: LOSARTAN POTASSIUM 50 MG TABLET PO SCH (10:18)
[2019-02-20] MEDS: CEFTRIAXONE SODIUM 1,000 MG in DEXTROSE 5%-WATER 50 ML IV SCH (10:19)
== END 2019-02-20 10:30 | disposition short-term general hospital (02) | DRG 64 ==
LOC: ER 13:58 → EH 16:57 → 3S 02-13 04:40
PROVIDERS: ADMIT Internal Medicine Geriatric Medicine; ATTEND Internal Medicine Geriatric Medicine
DX: I63.411 Cerebral infarction due to embolism of right middle cerebral artery (principal); L89.324 Pressure ulcer of left buttock, stage 4; I48.1 Persistent atrial fibrillation; N39.0 Urinary tract infection, site not specified; T79.6XXA Traumatic ischemia of muscle, initial encounter; I10 Essential (primary) hypertension; W01.0XXA Fall on same level from slipping, tripping and stumbling without subsequent striking against object, initial encounter; B96.20 Unspecified Escherichia coli [E. coli] as the cause of diseases classified elsewhere; R29.810 Facial weakness; I65.23 Occlusion and stenosis of bilateral carotid arteries; M47.812 Spondylosis without myelopathy or radiculopathy, cervical region; M19.90 Unspecified osteoarthritis, unspecified site; Z60.2 Problems related to living alone; Y92.013 Bedroom of single-family (private) house as the place of occurrence of the external cause
CPT/HCPCS: 36415; 70450; 71045; 72125; 80048; 80053; 80061; 82550; 82553; 82962; 83036; 83735; 84439; 84443; 84481; 84484; 85025; 85610; 85730; 87086; 87088; 87186; 93005; 93010; 93306; 93880; 96374; 96375; 96376; 99291; J0696; J1160; J1650; J3480; J3490; J7030

== ENCOUNTER → 2019-04-09 | Outpatient (CLI) | payer MEDICARE, OTHER ==
--- NOTE | 2019-04-09 14:19 | RADIOLOGY REPORT (SQ) ---
EXAM DESCRIPTION: PELVIS AP COMPLETED DATE/TIME: 04/09/2019 2:02 pm REASON FOR STUDY: PRESSURE ULCER OF RIGHT BUTTOCK, STAGE 4 L89.314 PRESSURE ULCER OF RIGHT BUTTOCK, STAGE 4 COMPARISON: None. NUMBER OF VIEWS: One view TECHNIQUE: AP Pelvis LIMITATIONS: None. FINDINGS: MINERALIZATION: Normal. HIPS: No acute fracture or dislocation. No worrisome bone lesions. PELVIS AND SACRUM: No acute fracture or dislocation. No worrisome bone lesions. PUBIS AND ISCHIUM: No acute fracture. LOWER LUMBAR SPINE: There are degenerative changes in the visualize lower lumbar spine. SOFT TISSUES: No findings. OTHER: No conventional radiographic evidence of osteomyelitis. IMPRESSION: No acute findings. COMMENT: Pelvic fractures are often occult on plain radiographs. If strong clinical suspicion for f racture, recommend CT or MR. TECHNICAL DOCUMENTATION: JOB ID: [id number] [employer]- All Rights Reserved Reading location - IP/workstation name: [email or web address]
== END ==
LOC: WC 13:25
PROVIDERS: ATTEND Nurse Practitioner Family
DX: L89.314 Pressure ulcer of right buttock, stage 4 (principal)
CPT/HCPCS: 72170